=== PATIENT | male | born 1990 ===

== ENCOUNTER 2017-11-22 06:31 | Inpatient (IN) ==
[~2017-11-22 06:31] MED LIST: LACTATED RINGERS 1,000 ML IV SCH
[2017-11-22] MEDS ORDERED: INSULIN REGULAR 100 UNIT/ML IV ONE (07:27)
[2017-11-22] MEDS ORDERED: LIDOCAINE 1% 20 ML VIAL ONE (07:47)
[2017-11-22] MEDS ORDERED: fentaNYL 100 MCG/2 ML VIAL ONE (08:40)
[2017-11-22] MEDS ORDERED: ONDANSETRON 4 MG/2 ML VIAL ONE (08:40)
[2017-11-22] MEDS ORDERED: PROPOFOL 200 MG/20 ML VIAL IV ONE (08:40)
[2017-11-22] MEDS ORDERED: MIDAZOLAM 2 MG/2 ML VIAL ONE (08:40)
[2017-11-22] MEDS ORDERED: SODIUM CHLORIDE 0.9% 100 ML IV ONE (08:41)
[2017-11-22] MEDS ORDERED: MORPHINE 4 MG/1 ML VIAL IV PRN (09:32)
[2017-11-22] MEDS ORDERED: PROMETHAZINE 25 MG/1 ML VIAL IM PRN (09:32)
[2017-11-22] MEDS ORDERED: GLUCAGON 1 MG VIAL IM PRN (09:32)
[2017-11-22] MEDS ORDERED: DEXTROSE 50% 25 GM/50 ML VIAL IV PRN (09:32)
[2017-11-22] MEDS ORDERED: ONDANSETRON 4 MG/2 ML VIAL IV PRN (09:32)
[2017-11-22] MEDS: LACTATED RINGERS 1,000 ML IV SCH ×2 (11:04→17:32)
[2017-11-22] MEDS: PIPERACILLIN/TAZOBACTAM 3,375 MG in SODIUM CHLORIDE 0.9% 100 ML IV SCH ×2 (11:07→18:54)
[2017-11-22] MEDS: INSULIN REGULAR 100 UNIT/ML SUBCUT SCH ×3 (12:28→20:37)
[2017-11-22] MEDS: VANCOMYCIN INJ 1,250 MG in SODIUM CHLORIDE 0.9% 250 ML IV SCH ×2 (12:53→23:38)
[2017-11-22 13:02] LABS: Basophils % 0.2 % (0.0-0.8); Eosinophils % 0.3 % (0.00-10.9); Hematocrit 27.2 VOL% (42.0-52.0); Immature Granulocytes % 0.6 %; Immature Granulocytes Absolute 0.07 #; Lymphocytes # 1.5 10*3/uL (1.4-4.0); Lymphocytes % 13.7 % (21.2-54.2); Mean Corpuscular HGB Conc 33.1 GM/DL (32-36); Mean Corpuscular Hemoglobin 29 PG (27-34); Mean Corpuscular Volume 87.2 FL (87-102); Mean Platelet Volume 10.2 FL (9.6-12.0); Monocytes # 1.1 10*3/uL (0.11-0.8); Neutrophils # 8.3 10*3/uL (1.4-7.4); Neutrophils % 75.2 % (38.7-73.9); Platelet Count 269 T/CUMM (130-400); Red Blood Count 3.12 MC/CUMM (3.8-5.5); White Blood Count 11.1 T/CUMM (4-12)
[2017-11-22 13:43] LABS: Alanine Aminotransferase < 6 U/L (16-61); Albumin 2.4 G/DL (3.4-5.0); Alkaline Phosphatase 113 U/L (45-117); Aspartate Amino Transferase 3 U/L (0-37); Blood Urea Nitrogen 11 MG/DL (7-18); Calcium 7.8 MG/DL (8.5-10.1); Glucose 369 MG/DL (74-106); Osmolality,Calculated 292.4 MOS/KG (273-304); Potassium 3.6 MMOL/L (3.5-5.1); Sodium 140 MMOL/L (136-145); Total Protein 6.7 G/DL (6.4-8.3)
[2017-11-22] MEDS: metFORMIN 500 MG TABLET PO SCH (18:28)
[2017-11-22] MEDS ORDERED: INSULIN GLARGINE 100 UNIT/ML SUBCUT SCH (21:00)
[2017-11-23] MEDS: LACTATED RINGERS 1,000 ML IV SCH (02:02)
[2017-11-23] MEDS: PIPERACILLIN/TAZOBACTAM 3,375 MG in SODIUM CHLORIDE 0.9% 100 ML IV SCH ×2 (02:02→12:37)
[2017-11-23] MEDS ORDERED: ENOXAPARIN 40 MG/0.4 ML SYRINGE SUBCUT SCH (06:00)
[2017-11-23 06:19] LABS: Basophils % 0.2 % (0.0-0.8); Eosinophils # 0.1 10*3/uL (0.0-0.87); Hematocrit 26.6 VOL% (42.0-52.0); Hemoglobin 8.9 GM/DL (14.0-18.0); Immature Granulocytes % 0.5 %; Immature Granulocytes Absolute 0.06 #; Lymphocytes # 1.8 10*3/uL (1.4-4.0); Lymphocytes % 16.7 % (21.2-54.2); Mean Corpuscular HGB Conc 33.5 GM/DL (32-36); Mean Corpuscular Hemoglobin 29 PG (27-34); Mean Corpuscular Volume 87.8 FL (87-102); Mean Platelet Volume 10.4 FL (9.6-12.0); Monocytes # 1.2 10*3/uL (0.11-0.8); Monocytes % 11.1 % (1.7-12.7); Neutrophils # 7.7 10*3/uL (1.4-7.4); Neutrophils % 70.5 % (38.7-73.9); Platelet Count 252 T/CUMM (130-400); Red Blood Count 3.03 MC/CUMM (3.8-5.5); Red Cell Distribution Width 11.9 % (9.3-17.3)
[2017-11-23 06:30] LABS: Calcium 7.7 MG/DL (8.5-10.1); Osmolality,Calculated 283.4 MOS/KG (273-304)
[2017-11-23] MEDS ORDERED: GLIMEPIRIDE 4 MG TABLET PO SCH (08:00)
[2017-11-23] MEDS ORDERED: CYANOCOBALAMIN 500 MCG TABLET PO SCH (09:00)
[2017-11-23] MEDS: INSULIN REGULAR 100 UNIT/ML SUBCUT SCH ×2 (09:11→12:36)
[2017-11-23] MEDS: metFORMIN 500 MG TABLET PO SCH (09:11)
[2017-11-23] MEDS ORDERED: SODIUM HYPOCHLORITE 0.25% IRRIG 473 ML BOTTLE TOP SCH (09:30)
[2017-11-23 10:51] VITALS: BP 134/85
[2017-11-23] MEDS: VANCOMYCIN INJ 1,250 MG in SODIUM CHLORIDE 0.9% 250 ML IV SCH (12:37)
== END 2017-11-23 15:00 | disposition home or self-care (01) | DRG 264 ==
LOC: N.OR 06:31 → N.SDSINP 06:33 → N.3E 09:30
PROVIDERS: ADMIT Surgery; ATTEND Surgery

== ENCOUNTER 2017-12-21 09:05 | Inpatient (IN) ==
[2017-12-21] MEDS ORDERED: ONDANSETRON 4 MG/2 ML VIAL IV PRN (09:15)
[2017-12-21] MEDS ORDERED: ACETAMINOPHEN 325 MG TABLET PO PRN (09:15)
[2017-12-21 09:56] LABS: Basophils % 0.1 % (0.0-0.8); Eosinophils # 0.1 10*3/uL (0.0-0.87); Eosinophils % 0.8 % (0.00-10.9); Hemoglobin 9.7 GM/DL (14.0-18.0); Immature Granulocytes % 0.5 %; Immature Granulocytes Absolute 0.05 #; Lymphocytes # 1.5 10*3/uL (1.4-4.0); Lymphocytes % 15.1 % (21.2-54.2); Mean Corpuscular HGB Conc 33.4 GM/DL (32-36); Mean Corpuscular Hemoglobin 27 PG (27-34); Mean Corpuscular Volume 81.7 FL (87-102); Mean Platelet Volume 10.6 FL (9.6-12.0); Monocytes # 1.1 10*3/uL (0.11-0.8); Neutrophils # 7.3 10*3/uL (1.4-7.4); Neutrophils % 72.5 % (38.7-73.9); Platelet Count 404 T/CUMM (130-400); Red Blood Count 3.55 MC/CUMM (3.8-5.5)
[2017-12-21 10:33] LABS: Albumin 2.4 G/DL (3.4-5.0); Bilirubin,Total 0.5 MG/DL (0.2-1.0); Calcium 8.6 MG/DL (8.5-10.1); Potassium 3.5 MMOL/L (3.5-5.1); Total Protein 7.7 G/DL (6.4-8.3)
[2017-12-21] MEDS: INSULIN REGULAR 100 UNIT/ML SUBCUT SCH ×3 (10:35→21:28)
[2017-12-21] MEDS ORDERED: LIDOCAINE 1% 20 ML VIAL ONE (12:28)
[2017-12-21] MEDS ORDERED: fentaNYL 100 MCG/2 ML VIAL ONE (12:50)
[2017-12-21] MEDS ORDERED: MIDAZOLAM 2 MG/2 ML VIAL ONE (12:50)
[2017-12-21] MEDS ORDERED: SEVOFLURANE 1 UNIT/15 MINUTE INH ONE (12:50)
[2017-12-21] MEDS ORDERED: ONDANSETRON 4 MG/2 ML VIAL ONE (12:51)
[2017-12-21] MEDS ORDERED: PROPOFOL 200 MG/20 ML VIAL IV ONE (12:51)
[2017-12-21] MEDS: SODIUM CHLORIDE 0.45% 1,000 ML IV SCH (14:05)
[2017-12-21] MEDS: PIPERACILLIN/TAZOBACTAM 3,375 MG in SODIUM CHLORIDE 0.9% 100 ML IV SCH ×2 (14:31→23:19)
[2017-12-21] MEDS: metFORMIN 500 MG TABLET PO SCH (16:53)
[2017-12-21] MEDS: VANCOMYCIN INJ 1,000 MG in SODIUM CHLORIDE 0.9% 250 ML IV SCH (21:26)
[2017-12-21] MEDS: INSULIN GLARGINE 100 UNIT/ML SUBCUT SCH (21:29)
[2017-12-22] MEDS: SODIUM CHLORIDE 0.45% 1,000 ML IV SCH (05:12)
[2017-12-22] MEDS: VANCOMYCIN INJ 1,000 MG in SODIUM CHLORIDE 0.9% 250 ML IV SCH ×3 (05:13→20:26)
[2017-12-22] MEDS: PIPERACILLIN/TAZOBACTAM 3,375 MG in SODIUM CHLORIDE 0.9% 100 ML IV SCH ×3 (06:32→22:39)
[2017-12-22] MEDS: PANTOPRAZOLE 40 MG TABLET PO SCH (09:16)
[2017-12-22] MEDS: metFORMIN 500 MG TABLET PO SCH ×2 (09:16→17:00)
[2017-12-22] MEDS: INSULIN REGULAR 100 UNIT/ML SUBCUT SCH ×5 (09:17→20:26)
[2017-12-22] MEDS: GLIMEPIRIDE 4 MG TABLET PO SCH (09:17)
[2017-12-22] MEDS: SODIUM HYPOCHLORITE 0.25% IRRIG 473 ML BOTTLE TOP SCH (09:20)
[2017-12-22] MEDS: INSULIN GLARGINE 100 UNIT/ML SUBCUT SCH (20:27)
[2017-12-23] MEDS: VANCOMYCIN INJ 1,000 MG in SODIUM CHLORIDE 0.9% 250 ML IV SCH ×3 (04:21→20:51)
[2017-12-23] MEDS: PIPERACILLIN/TAZOBACTAM 3,375 MG in SODIUM CHLORIDE 0.9% 100 ML IV SCH ×3 (05:34→22:54)
[2017-12-23 07:18] LABS: Osmolality,Calculated 277.3 MOS/KG (273-304); Potassium 3.2 MMOL/L (3.5-5.1)
[2017-12-23] MEDS: INSULIN REGULAR 100 UNIT/ML SUBCUT SCH ×4 (07:32→20:31)
[2017-12-23] MEDS: metFORMIN 500 MG TABLET PO SCH ×2 (08:56→16:37)
[2017-12-23] MEDS: PANTOPRAZOLE 40 MG TABLET PO SCH (08:57)
[2017-12-23] MEDS: GLIMEPIRIDE 4 MG TABLET PO SCH (08:57)
[2017-12-23] MEDS: SODIUM HYPOCHLORITE 0.25% IRRIG 473 ML BOTTLE TOP SCH (14:21)
[2017-12-23] MEDS: INSULIN GLARGINE 100 UNIT/ML SUBCUT SCH (20:52)
[2017-12-24] MEDS: VANCOMYCIN INJ 1,000 MG in SODIUM CHLORIDE 0.9% 250 ML IV SCH ×3 (04:36→20:47)
[2017-12-24] MEDS: PIPERACILLIN/TAZOBACTAM 3,375 MG in SODIUM CHLORIDE 0.9% 100 ML IV SCH ×3 (06:31→22:24)
[2017-12-24] MEDS: INSULIN REGULAR 100 UNIT/ML SUBCUT SCH ×4 (08:50→20:48)
[2017-12-24] MEDS: PANTOPRAZOLE 40 MG TABLET PO SCH (08:51)
[2017-12-24] MEDS: metFORMIN 500 MG TABLET PO SCH ×2 (08:51→16:23)
[2017-12-24] MEDS: GLIMEPIRIDE 4 MG TABLET PO SCH (08:52)
[2017-12-24] MEDS: SODIUM HYPOCHLORITE 0.25% IRRIG 473 ML BOTTLE TOP SCH (08:53)
[2017-12-24] MEDS ORDERED: POTASSIUM CHLORIDE 20 MEQ TABLET PO PRN (14:11)
[2017-12-24] MEDS: INSULIN GLARGINE 100 UNIT/ML SUBCUT SCH (20:48)
[2017-12-25] MEDS: VANCOMYCIN INJ 1,000 MG in SODIUM CHLORIDE 0.9% 250 ML IV SCH (04:07)
[2017-12-25] MEDS: PIPERACILLIN/TAZOBACTAM 3,375 MG in SODIUM CHLORIDE 0.9% 100 ML IV SCH (06:05)
[2017-12-25] MEDS ORDERED: LEVOFLOXACIN 750 MG TABLET PO SCH (06:30)
[2017-12-25] MEDS: INSULIN REGULAR 100 UNIT/ML SUBCUT SCH ×2 (08:00→11:05)
[2017-12-25] MEDS: PANTOPRAZOLE 40 MG TABLET PO SCH (08:01)
[2017-12-25] MEDS: GLIMEPIRIDE 4 MG TABLET PO SCH (08:01)
[2017-12-25] MEDS: metFORMIN 500 MG TABLET PO SCH (08:01)
[2017-12-25] MEDS: SODIUM HYPOCHLORITE 0.25% IRRIG 473 ML BOTTLE TOP SCH (08:02)
[2017-12-25 12:54] VITALS: BP 115/70
== END 2017-12-25 13:48 | disposition home or self-care (01) | DRG 638 ==
LOC: N.5E 09:05 → INTOOBSV 09:05
PROVIDERS: ADMIT Surgery; ATTEND Surgery

== ENCOUNTER 2018-01-04 06:42 | Inpatient (IN) ==
[2018-01-04] MEDS ORDERED: GLUCAGON 1 MG VIAL IM PRN ×2 (07:52→15:12)
[2018-01-04] MEDS ORDERED: DEXTROSE 50% 25 GM/50 ML VIAL IV PRN ×2 (07:52→15:12)
[2018-01-04] MEDS: INSULIN REGULAR 100 UNIT/ML SUBCUT SCH ×4 (08:06→21:04)
[2018-01-04] MEDS ORDERED: FAMOTIDINE 20 MG TABLET PO ONE (08:16)
[2018-01-04] MEDS ORDERED: DIAZEPAM 5 MG TABLET PO ONE (08:16)
[2018-01-04] MEDS ORDERED: LACTATED RINGERS 1,000 ML IV SCH ×2 (08:30→15:12)
[2018-01-04] MEDS ORDERED: LIDOCAINE 1% 20 ML VIAL ONE (13:18)
[2018-01-04] MEDS ORDERED: DEXTROSE 5% 1,000 ML IV SCH (13:30)
[2018-01-04] MEDS ORDERED: PROPOFOL 200 MG/20 ML VIAL IV ONE (14:01)
[2018-01-04] MEDS ORDERED: fentaNYL 100 MCG/2 ML VIAL ONE (14:02)
[2018-01-04] MEDS ORDERED: ONDANSETRON 4 MG/2 ML VIAL ONE (14:02)
[2018-01-04] MEDS ORDERED: MIDAZOLAM 2 MG/2 ML VIAL ONE (14:02)
[2018-01-04] MEDS ORDERED: PROMETHAZINE 25 MG/1 ML VIAL IM PRN (15:12)
[2018-01-04] MEDS ORDERED: ONDANSETRON 4 MG/2 ML VIAL IV PRN (15:12)
[2018-01-04] MEDS: LEVOFLOXACIN 750 MG TABLET PO SCH (16:05)
[2018-01-04] MEDS: metFORMIN 500 MG TABLET PO SCH (17:32)
[2018-01-04] MEDS: INSULIN GLARGINE 100 UNIT/ML SUBCUT SCH (21:03)
[2018-01-05 05:16] LABS: Basophils % 0.4 % (0.0-0.8); Eosinophils # 0.1 10*3/uL (0.0-0.87); Eosinophils % 1.6 % (0.00-10.9); Hematocrit 28.9 VOL% (42.0-52.0); Hemoglobin 9.3 GM/DL (14.0-18.0); Immature Granulocytes % 0.3 %; Immature Granulocytes Absolute 0.02 #; Lymphocytes # 1.3 10*3/uL (1.4-4.0); Mean Corpuscular HGB Conc 32.2 GM/DL (32-36); Mean Corpuscular Hemoglobin 27 PG (27-34); Mean Corpuscular Volume 82.6 FL (87-102); Mean Platelet Volume 10.7 FL (9.6-12.0); Monocytes # 0.4 10*3/uL (0.11-0.8); Monocytes % 5.9 % (1.7-12.7); Neutrophils # 5.2 10*3/uL (1.4-7.4); Neutrophils % 73.8 % (38.7-73.9); Platelet Count 339 T/CUMM (130-400); Red Cell Distribution Width 13.1 % (9.3-17.3); White Blood Count 7.1 T/CUMM (4-12)
[2018-01-05 05:52] LABS: Calcium 8.6 MG/DL (8.5-10.1); Osmolality,Calculated 287.4 MOS/KG (273-304); Potassium 3.2 MMOL/L (3.5-5.1)
[2018-01-05] MEDS: GLIMEPIRIDE 2 MG TABLET PO SCH (08:22)
[2018-01-05] MEDS: metFORMIN 500 MG TABLET PO SCH ×2 (08:22→16:28)
[2018-01-05] MEDS: INSULIN REGULAR 100 UNIT/ML SUBCUT SCH ×4 (08:32→21:33)
[2018-01-05] MEDS: ENOXAPARIN 40 MG/0.4 ML SYRINGE SUBCUT SCH (08:33)
[2018-01-05] MEDS: POTASSIUM CHLORIDE 20 MEQ TABLET PO PRN ×4 (10:49→18:28)
[2018-01-05] MEDS: LEVOFLOXACIN 750 MG TABLET PO SCH (16:28)
[2018-01-05] MEDS: INSULIN GLARGINE 100 UNIT/ML SUBCUT SCH (21:33)
[2018-01-06] MEDS: INSULIN REGULAR 100 UNIT/ML SUBCUT SCH ×4 (08:00→21:07)
[2018-01-06] MEDS: metFORMIN 500 MG TABLET PO SCH ×2 (09:48→16:28)
[2018-01-06] MEDS: GLIMEPIRIDE 2 MG TABLET PO SCH (09:48)
[2018-01-06] MEDS: ENOXAPARIN 40 MG/0.4 ML SYRINGE SUBCUT SCH (09:49)
[2018-01-06] MEDS: LEVOFLOXACIN 750 MG TABLET PO SCH (16:28)
[2018-01-06] MEDS: INSULIN GLARGINE 100 UNIT/ML SUBCUT SCH (21:08)
[2018-01-07] MEDS: INSULIN REGULAR 100 UNIT/ML SUBCUT SCH ×4 (07:59→20:58)
[2018-01-07] MEDS: GLIMEPIRIDE 2 MG TABLET PO SCH (08:00)
[2018-01-07] MEDS: metFORMIN 500 MG TABLET PO SCH ×2 (08:00→17:16)
[2018-01-07] MEDS: ENOXAPARIN 40 MG/0.4 ML SYRINGE SUBCUT SCH (08:16)
[2018-01-07] MEDS ORDERED: LIDOCAINE 1% 20 ML VIAL ONE (08:55)
[2018-01-07] MEDS ORDERED: LACTATED RINGERS 1,000 ML IV SCH (09:30)
[2018-01-07] MEDS ORDERED: ONDANSETRON 4 MG/2 ML VIAL ONE (10:15)
[2018-01-07] MEDS ORDERED: PROPOFOL 200 MG/20 ML VIAL IV ONE (10:15)
[2018-01-07] MEDS ORDERED: fentaNYL 100 MCG/2 ML VIAL ONE (10:15)
[2018-01-07] MEDS ORDERED: MIDAZOLAM 2 MG/2 ML VIAL ONE (10:15)
[2018-01-07] MEDS: LEVOFLOXACIN 750 MG TABLET PO SCH (17:16)
[2018-01-07] MEDS: INSULIN GLARGINE 100 UNIT/ML SUBCUT SCH (20:56)
[2018-01-08 05:26] LABS: Basophils % 0.2 % (0.0-0.8); Eosinophils # 0.1 10*3/uL (0.0-0.87); Eosinophils % 1.4 % (0.00-10.9); Hematocrit 28.1 VOL% (42.0-52.0); Immature Granulocytes % 0.5 %; Immature Granulocytes Absolute 0.03 #; Lymphocytes # 1.9 10*3/uL (1.4-4.0); Lymphocytes % 28.6 % (21.2-54.2); Mean Corpuscular Hemoglobin 27 PG (27-34); Mean Corpuscular Volume 83.9 FL (87-102); Mean Platelet Volume 11.2 FL (9.6-12.0); Monocytes # 0.6 10*3/uL (0.11-0.8); Monocytes % 9.6 % (1.7-12.7); Neutrophils % 59.7 % (38.7-73.9); Platelet Count 258 T/CUMM (130-400); Red Blood Count 3.35 MC/CUMM (3.8-5.5); Red Cell Distribution Width 13.2 % (9.3-17.3); White Blood Count 6.6 T/CUMM (4-12)
[2018-01-08 05:46] LABS: Calcium 8.5 MG/DL (8.5-10.1); Osmolality,Calculated 281.3 MOS/KG (273-304); Potassium 3.5 MMOL/L (3.5-5.1)
[2018-01-08] MEDS: ENOXAPARIN 40 MG/0.4 ML SYRINGE SUBCUT SCH (09:42)
[2018-01-08] MEDS: metFORMIN 500 MG TABLET PO SCH (09:42)
[2018-01-08] MEDS: GLIMEPIRIDE 2 MG TABLET PO SCH (09:42)
[2018-01-08] MEDS: INSULIN REGULAR 100 UNIT/ML SUBCUT SCH ×2 (09:43→12:27)
[2018-01-08 11:58] VITALS: BP 142/81
== END 2018-01-08 13:55 | DRG 240 ==
LOC: N.OR 06:42 → N.SDSINP 06:45 → N.3E 15:02
PROVIDERS: ADMIT Surgery; ATTEND Surgery

== ENCOUNTER 2018-03-10 06:29 | Inpatient (IN) ==
[2018-03-10] MEDS ORDERED: ALBUTEROL 2.5 MG/3 ML NEB RESP TX PRN (08:48)
[2018-03-10] MEDS ORDERED: GLUCAGON 1 MG VIAL IM PRN (09:04)
[2018-03-10] MEDS ORDERED: DEXTROSE 50% 25 GM/50 ML VIAL IV PRN (09:04)
[2018-03-10] MEDS: LACTATED RINGERS 1,000 ML IV SCH ×2 (09:25→17:51)
[2018-03-10] MEDS: PANTOPRAZOLE 40 MG VIAL IV SCH (09:26)
[2018-03-10] MEDS: ONDANSETRON 4 MG/2 ML VIAL IV PRN (09:29)
[2018-03-10] MEDS: MORPHINE 4 MG/1 ML VIAL IV PRN ×3 (09:37→20:34)
[2018-03-10] MEDS: PIPERACILLIN/TAZOBACTAM 3,375 MG in SODIUM CHLORIDE 0.9% 100 ML IV SCH ×2 (09:38→17:45)
[2018-03-10 09:39] LABS: Basophils % 0.2 % (0.0-0.8); Hematocrit 31.2 VOL% (42.0-52.0); Hemoglobin 10.6 GM/DL (14.0-18.0); Immature Granulocytes % 0.3 %; Immature Granulocytes Absolute 0.04 #; Lymphocytes # 0.6 10*3/uL (1.4-4.0); Lymphocytes % 4.6 % (21.2-54.2); Mean Corpuscular Hemoglobin 28 PG (27-34); Mean Corpuscular Volume 81.3 FL (87-102); Monocytes # 0.8 10*3/uL (0.11-0.8); Monocytes % 6.3 % (1.7-12.7); Neutrophils # 11.5 10*3/uL (1.4-7.4); Neutrophils % 88.6 % (38.7-73.9); Platelet Count 164 T/CUMM (130-400); Red Blood Count 3.84 MC/CUMM (3.8-5.5); Red Cell Distribution Width 14.7 % (9.3-17.3); White Blood Count 12.9 T/CUMM (4-12)
[2018-03-10 09:48] LABS: INR 1.1; PT Patient Result 11.2 SECS
[2018-03-10 09:54] LABS: Lactic Acid 1.1 MMOL/L (0.4-2.0)
[2018-03-10 10:06] LABS: Albumin 3.1 G/DL (3.4-5.0); Bilirubin,Total 0.9 MG/DL (0.2-1.0); Calcium 8.4 MG/DL (8.5-10.1); Osmolality,Calculated 280.1 MOS/KG (273-304); Potassium 3.7 MMOL/L (3.5-5.1); Total Protein 6.9 G/DL (6.4-8.3)
[2018-03-10 10:08] LABS: Band Neutrophils 6 % (0-10); Hypochromasia 1+; Lymphocytes 5 % (20-55); Platelet Estimate Adequate; Segmented Neutrophils 79 % (50-85); Total Cells Counted 100
[2018-03-10] MEDS: metroNIDAZOLE INJ 500 MG in PREMIX 1 EACH IV SCH ×3 (11:18→21:28)
[2018-03-10] MEDS: INSULIN LISPRO 100 UNIT/ML SUBCUT SCH ×2 (11:21→18:47)
[2018-03-10] MEDS: VANCOMYCIN INJ 1,250 MG in SODIUM CHLORIDE 0.9% 250 ML IV SCH ×2 (13:47→20:35)
[2018-03-10 15:15] LABS: Apearance,Urine CLEAR (Clear); Bilirubin,Urine Negative (Negative); Blood, Urine Small mg/dL (Negative); Glucose,Urine (UA) Negative (Negative); Ketones,Urine Negative (Negative); Mucus,Urine Occasional /LPF (Occasional); Nitrite,Urine Negative (Negative); Protein,Urine 30 MG/DL; RBC,Urine 2 /HPF (0-4); Urine Color Yellow (Yellow); Urine Specific Gravity 1.019 (1.001-1.035); Urine Urobilinogen < 2.0 EU/DL (0.2-1.0); WBC,Urine 1 /HPF (0-6)
[2018-03-11] MEDS: INSULIN LISPRO 100 UNIT/ML SUBCUT SCH ×5 (00:30→23:36)
[2018-03-11] MEDS: PIPERACILLIN/TAZOBACTAM 3,375 MG in SODIUM CHLORIDE 0.9% 100 ML IV SCH (01:33)
[2018-03-11] MEDS: LACTATED RINGERS 1,000 ML IV SCH ×4 (02:00→21:31)
[2018-03-11] MEDS: metroNIDAZOLE INJ 500 MG in PREMIX 1 EACH IV SCH ×4 (04:11→21:16)
[2018-03-11] MEDS: MORPHINE 4 MG/1 ML VIAL IV PRN ×3 (04:11→23:37)
[2018-03-11] MEDS: VANCOMYCIN INJ 1,250 MG in SODIUM CHLORIDE 0.9% 250 ML IV SCH ×2 (04:59→14:13)
[2018-03-11 07:27] LABS: Basophils % 0.2 % (0.0-0.8); Hematocrit 30.6 VOL% (42.0-52.0); Hemoglobin 9.9 GM/DL (14.0-18.0); Immature Granulocytes % 0.8 %; Immature Granulocytes Absolute 0.11 #; Lymphocytes # 0.6 10*3/uL (1.4-4.0); Lymphocytes % 4.3 % (21.2-54.2); Mean Corpuscular HGB Conc 32.4 GM/DL (32-36); Mean Corpuscular Hemoglobin 27 PG (27-34); Mean Corpuscular Volume 83.4 FL (87-102); Mean Platelet Volume 11.8 FL (9.6-12.0); Monocytes # 0.7 10*3/uL (0.11-0.8); Monocytes % 4.7 % (1.7-12.7); Platelet Count 145 T/CUMM (130-400); Red Blood Count 3.67 MC/CUMM (3.8-5.5); Red Cell Distribution Width 14.9 % (9.3-17.3); White Blood Count 14.4 T/CUMM (4-12)
[2018-03-11 07:58] LABS: Calcium 7.9 MG/DL (8.5-10.1); Osmolality,Calculated 279.1 MOS/KG (273-304); Potassium 3.5 MMOL/L (3.5-5.1)
[2018-03-11 08:05] LABS: Band Neutrophils 9 % (0-10); Hypochromasia 1+; Lymphocytes 4 % (20-55); Microcytosis 1+; Segmented Neutrophils 84 % (50-85); Total Cells Counted 100
[2018-03-11] MEDS: PANTOPRAZOLE 40 MG VIAL IV SCH (08:44)
[2018-03-11] MEDS: ENOXAPARIN 40 MG/0.4 ML SYRINGE SUBCUT SCH (08:44)
[2018-03-11] MEDS: MEROPENEM 1,000 MG in SODIUM CHLORIDE 0.9% 100 ML IV SCH ×3 (08:44→23:36)
[2018-03-11] MEDS ORDERED: MAGNESIUM SULF RIDER 4 GM in PREMIX 1 EACH IV ONE (12:00)
[2018-03-11] MEDS: VANCOMYCIN INJ 1,000 MG in SODIUM CHLORIDE 0.9% 250 ML IV SCH ×2 (14:17→21:30)
[2018-03-11] MEDS ORDERED: VANCOMYCIN INJ 1,000 MG in SODIUM CHLORIDE 0.9% 250 ML IV SCH (14:30)
[2018-03-11] MEDS: INSULIN GLARGINE 100 UNIT/ML SUBCUT SCH (21:10)
[2018-03-11] MEDS: ONDANSETRON 4 MG/2 ML VIAL IV PRN (21:17)
[2018-03-12] MEDS: metroNIDAZOLE INJ 500 MG in PREMIX 1 EACH IV SCH ×4 (03:19→21:25)
[2018-03-12 03:26] LABS: Basophils % 0.1 % (0.0-0.8); Hematocrit 26.2 VOL% (42.0-52.0); Hemoglobin 8.4 GM/DL (14.0-18.0); Immature Granulocytes % 0.9 %; Immature Granulocytes Absolute 0.12 #; Lymphocytes # 0.6 10*3/uL (1.4-4.0); Lymphocytes % 4.2 % (21.2-54.2); Mean Corpuscular HGB Conc 32.1 GM/DL (32-36); Mean Corpuscular Hemoglobin 27 PG (27-34); Mean Corpuscular Volume 84.5 FL (87-102); Mean Platelet Volume 12.8 FL (9.6-12.0); Neutrophils # 12.2 10*3/uL (1.4-7.4); Neutrophils % 87.8 % (38.7-73.9); Platelet Count 119 T/CUMM (130-400); White Blood Count 13.8 T/CUMM (4-12)
[2018-03-12 03:38] LABS: Albumin 2.3 G/DL (3.4-5.0); Bilirubin,Total 0.6 MG/DL (0.2-1.0); Calcium 8.1 MG/DL (8.5-10.1); Osmolality,Calculated 279.1 MOS/KG (273-304); Total Protein 6.2 G/DL (6.4-8.3)
[2018-03-12 04:07] LABS: Band Neutrophils 5 % (0-10); Lymphocytes 4 % (20-55); Segmented Neutrophils 88 % (50-85)
[2018-03-12 04:08] LABS: Hypochromasia Slight
[2018-03-12 04:09] LABS: Platelet Estimate Adequate; Total Cells Counted 100
[2018-03-12] MEDS ORDERED: POTASSIUM CHLORIDE INJ 50 MEQ in SODIUM CHLORIDE 0.9% 475 ML IV SCH (05:30)
[2018-03-12] MEDS: MORPHINE 4 MG/1 ML VIAL IV PRN ×4 (05:37→23:44)
[2018-03-12] MEDS: VANCOMYCIN INJ 1,000 MG in SODIUM CHLORIDE 0.9% 250 ML IV SCH (05:38)
[2018-03-12] MEDS: INSULIN LISPRO 100 UNIT/ML SUBCUT SCH ×5 (05:47→21:24)
[2018-03-12] MEDS ORDERED: LACTATED RINGERS 1,000 ML IV ONE (07:15)
[2018-03-12] MEDS: POTASSIUM CHLORIDE 20 MEQ TABLET PO SCH ×4 (09:06→21:24)
[2018-03-12] MEDS: ENOXAPARIN 40 MG/0.4 ML SYRINGE SUBCUT SCH (09:06)
[2018-03-12] MEDS: PANTOPRAZOLE 40 MG VIAL IV SCH (09:07)
[2018-03-12] MEDS: MEROPENEM 1,000 MG in SODIUM CHLORIDE 0.9% 100 ML IV SCH ×2 (09:12→15:58)
[2018-03-12] MEDS: LACTATED RINGERS 1,000 ML IV SCH ×5 (09:37→23:43)
[2018-03-12] MEDS: ONDANSETRON 4 MG/2 ML VIAL IV PRN (21:25)
[2018-03-12] MEDS: INSULIN GLARGINE 100 UNIT/ML SUBCUT SCH (21:25)
[2018-03-13] MEDS: MEROPENEM 1,000 MG in SODIUM CHLORIDE 0.9% 100 ML IV SCH ×3 (00:53→16:15)
[2018-03-13] MEDS: metroNIDAZOLE INJ 500 MG in PREMIX 1 EACH IV SCH ×4 (03:33→22:30)
[2018-03-13] MEDS: LACTATED RINGERS 1,000 ML IV SCH ×5 (05:09→21:51)
[2018-03-13] MEDS: MORPHINE 4 MG/1 ML VIAL IV PRN ×2 (05:16→20:36)
[2018-03-13 05:43] LABS: Basophils % 0.1 % (0.0-0.8); Hematocrit 27.8 VOL% (42.0-52.0); Hemoglobin 9.1 GM/DL (14.0-18.0); Immature Granulocytes % 0.8 %; Immature Granulocytes Absolute 0.12 #; Lymphocytes # 0.6 10*3/uL (1.4-4.0); Lymphocytes % 3.8 % (21.2-54.2); Mean Corpuscular HGB Conc 32.7 GM/DL (32-36); Mean Corpuscular Hemoglobin 28 PG (27-34); Mean Corpuscular Volume 84.8 FL (87-102); Mean Platelet Volume 12.1 FL (9.6-12.0); Monocytes # 1.3 10*3/uL (0.11-0.8); Monocytes % 8.6 % (1.7-12.7); Neutrophils # 13.3 10*3/uL (1.4-7.4); Neutrophils % 86.7 % (38.7-73.9); Platelet Count 147 T/CUMM (130-400); Red Blood Count 3.28 MC/CUMM (3.8-5.5); Red Cell Distribution Width 15.5 % (9.3-17.3); White Blood Count 15.4 T/CUMM (4-12)
[2018-03-13 06:04] LABS: Eosinophils 1 % (0-10); Lymphocytes 5 % (20-55); Platelet Estimate Decreased; Segmented Neutrophils 89 % (50-85); Total Cells Counted 100
[2018-03-13 06:06] LABS: Calcium 8.1 MG/DL (8.5-10.1); Osmolality,Calculated 276.2 MOS/KG (273-304); Potassium 3.6 MMOL/L (3.5-5.1)
[2018-03-13] MEDS ORDERED: cefOXitin 2,000 MG in SYRINGE 1 EACH IV ONE (07:08)
[2018-03-13] MEDS ORDERED: VANCOMYCIN INJ 1,000 MG in SODIUM CHLORIDE 0.9% 250 ML IV SCH (08:00)
[2018-03-13] MEDS: INSULIN LISPRO 100 UNIT/ML SUBCUT SCH ×4 (08:23→20:36)
[2018-03-13] MEDS ORDERED: VANCOMYCIN 1,000 MG VIAL ONE (08:40)
[2018-03-13] MEDS ORDERED: PROPOFOL 1,000 MG/100 ML BOTTLE IV ONE (09:22)
[2018-03-13] MEDS: PANTOPRAZOLE 40 MG VIAL IV SCH (09:40)
[2018-03-13] MEDS: PROPOFOL 1,000 MG/100 ML BOTTLE IV SCH ×2 (09:40→21:52)
[2018-03-13] MEDS: ENOXAPARIN 40 MG/0.4 ML SYRINGE SUBCUT SCH (09:40)
[2018-03-13] MEDS ORDERED: PROPOFOL 200 MG/20 ML VIAL IV ONE (09:51)
[2018-03-13] MEDS ORDERED: fentaNYL 100 MCG/2 ML VIAL ONE (09:51)
[2018-03-13] MEDS ORDERED: ONDANSETRON 4 MG/2 ML VIAL ONE (09:51)
[2018-03-13] MEDS ORDERED: SEVOFLURANE 1 UNIT/15 MINUTE INH ONE (09:51)
[2018-03-13] MEDS ORDERED: MIDAZOLAM 2 MG/2 ML VIAL ONE (09:51)
[2018-03-13] MEDS ORDERED: ROCURONIUM 100 MG/10 ML VIAL IV ONE (09:52)
[2018-03-13] MEDS ORDERED: PHENYLEPHRINE 1 MG/10 ML SYRINGE IV ONE (09:52)
[2018-03-13] MEDS ORDERED: SUCCINYLCHOLINE 200 MG/10 ML VIAL ONE (09:52)
[2018-03-13] MEDS ORDERED: SODIUM CHLORIDE 0.9% 1,000 ML IV ONE (09:52)
[2018-03-13 09:54] LABS: Amorphous Crystals,Urine Occasional /HPF (Few); Apearance,Urine CLOUDY (Clear); Bacteria,Urine Moderate /HPF (Few); Bilirubin,Urine Negative (Negative); Blood, Urine Small mg/dL (Negative); Glucose,Urine (UA) 50 mg/dL (Negative); Ketones,Urine Negative (Negative); Mucus,Urine Few /LPF (Occasional); Nitrite,Urine Negative (Negative); Protein,Urine 30 MG/DL; RBC,Urine 8 /HPF (0-4); Urine Color Amber (Yellow); Urine Specific Gravity 1.016 (1.001-1.035); Urine Urobilinogen < 2.0 EU/DL (0.2-1.0)
[2018-03-13 09:59] LABS: Basophils % 0.1 % (0.0-0.8); Hematocrit 29.7 VOL% (42.0-52.0); Hemoglobin 9.7 GM/DL (14.0-18.0); Immature Granulocytes % 0.6 %; Immature Granulocytes Absolute 0.08 #; Lymphocytes % 7.2 % (21.2-54.2); Mean Corpuscular HGB Conc 32.7 GM/DL (32-36); Mean Corpuscular Hemoglobin 28 PG (27-34); Mean Corpuscular Volume 84.1 FL (87-102); Mean Platelet Volume 11.6 FL (9.6-12.0); Monocytes # 1.2 10*3/uL (0.11-0.8); Monocytes % 8.6 % (1.7-12.7); Neutrophils # 11.4 10*3/uL (1.4-7.4); Neutrophils % 83.5 % (38.7-73.9); Platelet Count 144 T/CUMM (130-400); Red Blood Count 3.53 MC/CUMM (3.8-5.5); Red Cell Distribution Width 15.5 % (9.3-17.3); White Blood Count 13.7 T/CUMM (4-12)
[2018-03-13 10:01] LABS: ABG Base Excess -8.3 MMOL/L (-2.5-2.5); ABG HCO3 17.8 MMOL/L (20-26); ABG Oxygen Saturation 99.7 % (95-100); ABG PCO2 33.1 MM HG (35-48); ABG PH 7.319 (7.35-7.45); ABG TCO2 15.6 MMOL/L (23-27)
[2018-03-13 10:18] LABS: Calcium 7.5 MG/DL (8.5-10.1); Osmolality,Calculated 279.2 MOS/KG (273-304); Potassium 3.5 MMOL/L (3.5-5.1)
[2018-03-13] MEDS: POTASSIUM CHLORIDE RIDER 10 MEQ in PREMIX 1 EACH IV PRN ×3 (12:25→14:45)
[2018-03-13 13:48] LABS: ABG Base Excess -7.2 MMOL/L (-2.5-2.5); ABG HCO3 17.1 MMOL/L (20-26); ABG Oxygen Saturation 98.9 % (95-100); ABG PCO2 30.6 MM HG (35-48); ABG PH 7.366 (7.35-7.45); ABG PO2 191.5 MM HG (80-95); ABG TCO2 18.1 MMOL/L (23-27); Pt O2 Delivery Device Ventilator
[2018-03-13] MEDS: INSULIN GLARGINE 100 UNIT/ML SUBCUT SCH (20:36)
[2018-03-14] MEDS: MEROPENEM 1,000 MG in SODIUM CHLORIDE 0.9% 100 ML IV SCH ×3 (00:19→16:46)
[2018-03-14] MEDS: LACTATED RINGERS 1,000 ML IV SCH ×4 (02:54→23:36)
[2018-03-14 03:14] LABS: ABG Base Excess -5.7 MMOL/L (-2.5-2.5); ABG HCO3 18.4 MMOL/L (20-26); ABG Oxygen Saturation 98.8 % (95-100); ABG PCO2 30.9 MM HG (35-48); ABG PH 7.392 (7.35-7.45); ABG PO2 192.6 MM HG (80-95); ABG TCO2 19.3 MMOL/L (23-27); Pt O2 Delivery Device Ventilator
[2018-03-14 03:14] LABS: Basophils % 0.2 % (0.0-0.8); Eosinophils % 0.1 % (0.00-10.9); Hematocrit 27.2 VOL% (42.0-52.0); Hemoglobin 8.8 GM/DL (14.0-18.0); Immature Granulocytes % 0.9 %; Immature Granulocytes Absolute 0.12 #; Lymphocytes % 7.5 % (21.2-54.2); Mean Corpuscular HGB Conc 32.4 GM/DL (32-36); Mean Corpuscular Hemoglobin 27 PG (27-34); Mean Corpuscular Volume 84.2 FL (87-102); Mean Platelet Volume 11.6 FL (9.6-12.0); Monocytes # 1.4 10*3/uL (0.11-0.8); Monocytes % 10.6 % (1.7-12.7); NRBC # 0.02 10*3/uL; Neutrophils # 10.3 10*3/uL (1.4-7.4); Neutrophils % 80.7 % (38.7-73.9); Platelet Count 178 T/CUMM (130-400); Red Blood Count 3.23 MC/CUMM (3.8-5.5); Red Cell Distribution Width 15.7 % (9.3-17.3); White Blood Count 12.8 T/CUMM (4-12)
[2018-03-14 03:29] LABS: Calcium 7.8 MG/DL (8.5-10.1); Osmolality,Calculated 282.8 MOS/KG (273-304); Potassium 3.6 MMOL/L (3.5-5.1)
[2018-03-14] MEDS: MORPHINE 4 MG/1 ML VIAL IV PRN (03:53)
[2018-03-14] MEDS: metroNIDAZOLE INJ 500 MG in PREMIX 1 EACH IV SCH ×2 (03:53→11:49)
[2018-03-14] MEDS: INSULIN LISPRO 100 UNIT/ML SUBCUT SCH ×4 (09:20→20:37)
[2018-03-14] MEDS: ENOXAPARIN 40 MG/0.4 ML SYRINGE SUBCUT SCH (09:22)
[2018-03-14] MEDS: PROPOFOL 1,000 MG/100 ML BOTTLE IV SCH (09:27)
[2018-03-14] MEDS ORDERED: VANCOMYCIN INJ 1,000 MG in SODIUM CHLORIDE 0.9% 250 ML IV ONE (10:00)
[2018-03-14] MEDS: PANTOPRAZOLE 40 MG VIAL IV SCH (12:42)
[2018-03-14] MEDS ORDERED: SEVOFLURANE 1 UNIT/15 MINUTE INH ONE (14:35)
[2018-03-14] MEDS ORDERED: fentaNYL 100 MCG/2 ML VIAL ONE (14:35)
[2018-03-14] MEDS ORDERED: MIDAZOLAM 2 MG/2 ML VIAL ONE (14:36)
[2018-03-14] MEDS ORDERED: ROCURONIUM 100 MG/10 ML VIAL IV ONE (14:36)
[2018-03-14] MEDS ORDERED: SODIUM CHLORIDE 0.9% 100 ML IV ONE (14:36)
[2018-03-14] MEDS ORDERED: PHENYLEPHRINE 10 MG/1 ML VIAL IV ONE (14:36)
[2018-03-14] MEDS ORDERED: PHENYLEPHRINE 1 MG/10 ML SYRINGE IV ONE (14:36)
[2018-03-14 15:16] LABS: Basophils % 0.1 % (0.0-0.8); Eosinophils # 0.1 10*3/uL (0.0-0.87); Eosinophils % 0.5 % (0.00-10.9); Hematocrit 28.4 VOL% (42.0-52.0); Hemoglobin 9.3 GM/DL (14.0-18.0); Immature Granulocytes % 1.7 %; Immature Granulocytes Absolute 0.19 #; Mean Corpuscular HGB Conc 32.7 GM/DL (32-36); Mean Corpuscular Hemoglobin 28 PG (27-34); Mean Corpuscular Volume 84.5 FL (87-102); Mean Platelet Volume 11.2 FL (9.6-12.0); Monocytes # 1.4 10*3/uL (0.11-0.8); Monocytes % 12.7 % (1.7-12.7); Neutrophils # 8.4 10*3/uL (1.4-7.4); Platelet Count 169 T/CUMM (130-400); Red Blood Count 3.36 MC/CUMM (3.8-5.5); Red Cell Distribution Width 15.9 % (9.3-17.3)
[2018-03-14 15:31] LABS: Calcium 7.7 MG/DL (8.5-10.1); Osmolality,Calculated 286.4 MOS/KG (273-304); Potassium 3.4 MMOL/L (3.5-5.1)
[2018-03-14 16:33] LABS: ABG HCO3 19.5 MMOL/L (20-26); ABG Oxygen Saturation 98.6 % (95-100); ABG PCO2 34.2 MM HG (35-48); ABG PH 7.374 (7.35-7.45); ABG PO2 177.9 MM HG (80-95); ABG TCO2 20.6 MMOL/L (23-27)
[2018-03-14] MEDS: INSULIN GLARGINE 100 UNIT/ML SUBCUT SCH (20:31)
[2018-03-14] MEDS: POTASSIUM CHLORIDE RIDER 10 MEQ in PREMIX 1 EACH IV PRN ×2 (20:31→21:34)
[2018-03-15] MEDS: MEROPENEM 1,000 MG in SODIUM CHLORIDE 0.9% 100 ML IV SCH ×3 (01:14→15:45)
[2018-03-15 03:36] LABS: ABG Base Excess -4.8 MMOL/L (-2.5-2.5); ABG HCO3 20.5 MMOL/L (20-26); ABG Oxygen Saturation 99.3 % (95-100); ABG PCO2 29.6 MM HG (35-48); ABG TCO2 16.9 MMOL/L (23-27)
[2018-03-15] MEDS: MORPHINE 4 MG/1 ML VIAL IV PRN (05:07)
[2018-03-15 05:49] LABS: Basophils % 0.2 % (0.0-0.8); Eosinophils # 0.1 10*3/uL (0.0-0.87); Eosinophils % 0.8 % (0.00-10.9); Hematocrit 29.1 VOL% (42.0-52.0); Hemoglobin 9.2 GM/DL (14.0-18.0); Immature Granulocytes % 1.6 %; Immature Granulocytes Absolute 0.19 #; Lymphocytes # 0.9 10*3/uL (1.4-4.0); Lymphocytes % 7.5 % (21.2-54.2); Mean Corpuscular HGB Conc 31.6 GM/DL (32-36); Mean Corpuscular Hemoglobin 27 PG (27-34); Mean Corpuscular Volume 84.8 FL (87-102); Mean Platelet Volume 10.7 FL (9.6-12.0); Monocytes # 1.5 10*3/uL (0.11-0.8); Monocytes % 13.1 % (1.7-12.7); Neutrophils % 76.8 % (38.7-73.9); Platelet Count 223 T/CUMM (130-400); Red Blood Count 3.43 MC/CUMM (3.8-5.5); Red Cell Distribution Width 15.9 % (9.3-17.3); White Blood Count 11.6 T/CUMM (4-12)
[2018-03-15 06:06] LABS: Calcium 7.3 MG/DL (8.5-10.1); Osmolality,Calculated 292.8 MOS/KG (273-304); Potassium 3.5 MMOL/L (3.5-5.1)
[2018-03-15] MEDS: PROPOFOL 1,000 MG/100 ML BOTTLE IV SCH ×2 (06:15→09:34)
[2018-03-15] MEDS: POTASSIUM CHLORIDE RIDER 10 MEQ in PREMIX 1 EACH IV PRN ×3 (06:53→08:44)
[2018-03-15] MEDS: LACTATED RINGERS 1,000 ML IV SCH ×2 (07:34→15:46)
[2018-03-15] MEDS: INSULIN LISPRO 100 UNIT/ML SUBCUT SCH ×4 (07:40→20:32)
[2018-03-15] MEDS: ENOXAPARIN 40 MG/0.4 ML SYRINGE SUBCUT SCH (09:29)
[2018-03-15] MEDS: PANTOPRAZOLE 40 MG VIAL IV SCH (09:30)
[2018-03-15 11:05] LABS: Protein C Activity Plasma 43 % (70 - 150)
[2018-03-15 12:09] LABS: Allen Test Positive; Pt O2 Delivery Device Ventilator
[2018-03-15 12:10] LABS: ABG Base Excess -5.2 MMOL/L (-2.5-2.5); ABG HCO3 19.2 MMOL/L (20-26); ABG Oxygen Saturation 98.2 % (95-100); ABG PCO2 33.1 MM HG (35-48); ABG PH 7.381 (7.35-7.45); ABG PO2 133.4 MM HG (80-95); ABG TCO2 20.2 MMOL/L (23-27)
[2018-03-15 13:51] LABS: ABG Base Excess -5.1 MMOL/L (-2.5-2.5); ABG HCO3 20.2 MMOL/L (20-26); ABG Oxygen Saturation 98.3 % (95-100); ABG PCO2 36.7 MM HG (35-48); ABG PH 7.345 (7.35-7.45); ABG TCO2 18.3 MMOL/L (23-27); Allen Test Positive
[2018-03-15 16:00] LABS: Protein S Activity Plasma 49 % (65 - 160)
[2018-03-15] MEDS: INSULIN GLARGINE 100 UNIT/ML SUBCUT SCH (20:32)
[2018-03-16] MEDS: MEROPENEM 1,000 MG in SODIUM CHLORIDE 0.9% 100 ML IV SCH ×3 (01:05→16:40)
[2018-03-16] MEDS: LACTATED RINGERS 1,000 ML IV SCH ×5 (08:25→23:30)
[2018-03-16] MEDS: PANTOPRAZOLE 40 MG VIAL IV SCH (08:45)
[2018-03-16] MEDS: ENOXAPARIN 40 MG/0.4 ML SYRINGE SUBCUT SCH (08:49)
[2018-03-16] MEDS: INSULIN LISPRO 100 UNIT/ML SUBCUT SCH ×4 (08:49→20:35)
[2018-03-16] MEDS: MORPHINE 4 MG/1 ML VIAL IV PRN (09:03)
[2018-03-16] MEDS: PROPOFOL 1,000 MG/100 ML BOTTLE IV SCH (09:42)
[2018-03-16] MEDS: INSULIN GLARGINE 100 UNIT/ML SUBCUT SCH (20:36)
[2018-03-17] MEDS: MEROPENEM 1,000 MG in SODIUM CHLORIDE 0.9% 100 ML IV SCH ×3 (00:32→16:55)
[2018-03-17] MEDS: MORPHINE 4 MG/1 ML VIAL IV PRN (04:04)
[2018-03-17 05:35] LABS: Basophils % 0.2 % (0.0-0.8); Eosinophils # 0.2 10*3/uL (0.0-0.87); Eosinophils % 1.9 % (0.00-10.9); Hematocrit 28.7 VOL% (42.0-52.0); Hemoglobin 9.1 GM/DL (14.0-18.0); Immature Granulocytes % 4.5 %; Immature Granulocytes Absolute 0.47 #; Lymphocytes # 1.3 10*3/uL (1.4-4.0); Lymphocytes % 12.2 % (21.2-54.2); Mean Corpuscular HGB Conc 31.7 GM/DL (32-36); Mean Corpuscular Hemoglobin 27 PG (27-34); Mean Corpuscular Volume 84.9 FL (87-102); Mean Platelet Volume 9.9 FL (9.6-12.0); Monocytes # 1.3 10*3/uL (0.11-0.8); Monocytes % 12.4 % (1.7-12.7); Neutrophils # 7.2 10*3/uL (1.4-7.4); Neutrophils % 68.8 % (38.7-73.9); Platelet Count 314 T/CUMM (130-400); Red Blood Count 3.38 MC/CUMM (3.8-5.5); Red Cell Distribution Width 15.3 % (9.3-17.3); White Blood Count 10.5 T/CUMM (4-12)
[2018-03-17 05:54] LABS: Calcium 7.2 MG/DL (8.5-10.1); Osmolality,Calculated 286.4 MOS/KG (273-304); Potassium 3.1 MMOL/L (3.5-5.1)
[2018-03-17] MEDS ORDERED: DEXTROSE 10% 1,000 ML IV PRN (08:46)
[2018-03-17] MEDS: LACTATED RINGERS 1,000 ML IV SCH ×3 (08:46→20:28)
[2018-03-17] MEDS: PANTOPRAZOLE 40 MG VIAL IV SCH (09:23)
[2018-03-17] MEDS: POTASSIUM CHLORIDE RIDER 10 MEQ in PREMIX 1 EACH IV PRN ×7 (09:25→18:55)
[2018-03-17] MEDS: ENOXAPARIN 40 MG/0.4 ML SYRINGE SUBCUT SCH (09:28)
[2018-03-17] MEDS: INSULIN LISPRO 100 UNIT/ML SUBCUT SCH ×3 (09:28→17:05)
[2018-03-17] MEDS: PROPOFOL 1,000 MG/100 ML BOTTLE IV SCH (09:34)
[2018-03-17] MEDS ORDERED: AMINO ACIDS/DEXT/LYTES 4.25-5% 2,000 ML IV ONE (17:00)
[2018-03-17] MEDS ORDERED: AMINO ACIDS/DEXT/LYTES 5-15% 2,000 ML IV SCH (17:00)
[2018-03-17] MEDS: ONDANSETRON 4 MG/2 ML VIAL IV PRN (23:45)
[2018-03-18] MEDS: INSULIN LISPRO 100 UNIT/ML SUBCUT SCH ×5 (00:18→23:29)
[2018-03-18] MEDS: INSULIN GLARGINE 100 UNIT/ML SUBCUT SCH ×2 (00:18→20:32)
[2018-03-18] MEDS ORDERED: MORPHINE 4 MG/1 ML VIAL IV PRN (01:00)
[2018-03-18] MEDS ORDERED: MORPHINE 4 MG/1 ML VIAL ONE (01:06)
[2018-03-18] MEDS: MEROPENEM 1,000 MG in SODIUM CHLORIDE 0.9% 100 ML IV SCH ×4 (01:13→23:44)
[2018-03-18 04:45] LABS: Basophils % 0.2 % (0.0-0.8); Eosinophils # 0.2 10*3/uL (0.0-0.87); Eosinophils % 1.7 % (0.00-10.9); Hematocrit 28.2 VOL% (42.0-52.0); Hemoglobin 8.9 GM/DL (14.0-18.0); Immature Granulocytes Absolute 0.39 #; Lymphocytes # 1.3 10*3/uL (1.4-4.0); Lymphocytes % 13.1 % (21.2-54.2); Mean Corpuscular HGB Conc 31.6 GM/DL (32-36); Mean Corpuscular Hemoglobin 27 PG (27-34); Mean Corpuscular Volume 84.4 FL (87-102); Mean Platelet Volume 9.7 FL (9.6-12.0); Monocytes % 10.3 % (1.7-12.7); Neutrophils # 6.9 10*3/uL (1.4-7.4); Neutrophils % 70.7 % (38.7-73.9); Platelet Count 332 T/CUMM (130-400); Red Blood Count 3.34 MC/CUMM (3.8-5.5); Red Cell Distribution Width 14.8 % (9.3-17.3); White Blood Count 9.8 T/CUMM (4-12)
[2018-03-18 05:10] LABS: Albumin 1.6 G/DL (3.4-5.0); Bilirubin,Total 0.6 MG/DL (0.2-1.0); Osmolality,Calculated 280.7 MOS/KG (273-304); Potassium 3.6 MMOL/L (3.5-5.1); Total Protein 5.3 G/DL (6.4-8.3)
[2018-03-18] MEDS: ENOXAPARIN 40 MG/0.4 ML SYRINGE SUBCUT SCH (08:35)
[2018-03-18] MEDS: PANTOPRAZOLE 40 MG VIAL IV SCH (08:38)
[2018-03-18 15:05] LABS: Phospholipid Ab IgM, S 15.2 MPL
[2018-03-18] MEDS ORDERED: AMINO ACIDS/DEXT/LYTES 4.25-5% 2,000 ML IV SCH (17:00)
[2018-03-19 04:55] LABS: Basophils % 0.2 % (0.0-0.8); Eosinophils # 0.2 10*3/uL (0.0-0.87); Eosinophils % 2.3 % (0.00-10.9); Hematocrit 28.1 VOL% (42.0-52.0); Hemoglobin 8.8 GM/DL (14.0-18.0); Immature Granulocytes % 2.6 %; Immature Granulocytes Absolute 0.25 #; Lymphocytes # 1.6 10*3/uL (1.4-4.0); Lymphocytes % 16.6 % (21.2-54.2); Mean Corpuscular HGB Conc 31.3 GM/DL (32-36); Mean Corpuscular Hemoglobin 26 PG (27-34); Mean Corpuscular Volume 84.1 FL (87-102); Mean Platelet Volume 9.4 FL (9.6-12.0); Monocytes % 10.1 % (1.7-12.7); Neutrophils # 6.5 10*3/uL (1.4-7.4); Neutrophils % 68.2 % (38.7-73.9); Platelet Count 366 T/CUMM (130-400); Red Blood Count 3.34 MC/CUMM (3.8-5.5); Red Cell Distribution Width 14.6 % (9.3-17.3); White Blood Count 9.5 T/CUMM (4-12)
[2018-03-19 05:30] LABS: Calcium 7.6 MG/DL (8.5-10.1); Osmolality,Calculated 278.5 MOS/KG (273-304); Potassium 3.2 MMOL/L (3.5-5.1)
[2018-03-19] MEDS: INSULIN LISPRO 100 UNIT/ML SUBCUT SCH ×3 (06:13→17:09)
[2018-03-19] MEDS: MEROPENEM 1,000 MG in SODIUM CHLORIDE 0.9% 100 ML IV SCH ×2 (08:25→16:12)
[2018-03-19] MEDS: ENOXAPARIN 40 MG/0.4 ML SYRINGE SUBCUT SCH (09:08)
[2018-03-19] MEDS: PANTOPRAZOLE 40 MG VIAL IV SCH (09:09)
[2018-03-19] MEDS ORDERED: POTASSIUM CHLORIDE 20 MEQ TABLET PO PRN (15:34)
[2018-03-19] MEDS: INSULIN GLARGINE 100 UNIT/ML SUBCUT SCH (21:39)
[2018-03-20] MEDS: MEROPENEM 1,000 MG in SODIUM CHLORIDE 0.9% 100 ML IV SCH ×3 (00:41→16:00)
[2018-03-20] MEDS: INSULIN LISPRO 100 UNIT/ML SUBCUT SCH ×4 (00:55→17:40)
[2018-03-20 05:44] LABS: Basophils % 0.2 % (0.0-0.8); Eosinophils # 0.2 10*3/uL (0.0-0.87); Eosinophils % 2.5 % (0.00-10.9); Hematocrit 28.1 VOL% (42.0-52.0); Hemoglobin 8.9 GM/DL (14.0-18.0); Immature Granulocytes % 3.2 %; Immature Granulocytes Absolute 0.29 #; Lymphocytes # 1.5 10*3/uL (1.4-4.0); Lymphocytes % 16.4 % (21.2-54.2); Mean Corpuscular HGB Conc 31.7 GM/DL (32-36); Mean Corpuscular Hemoglobin 27 PG (27-34); Mean Corpuscular Volume 85.2 FL (87-102); Mean Platelet Volume 9.8 FL (9.6-12.0); Monocytes # 0.9 10*3/uL (0.11-0.8); Monocytes % 9.8 % (1.7-12.7); Neutrophils # 6.1 10*3/uL (1.4-7.4); Neutrophils % 67.9 % (38.7-73.9); Platelet Count 401 T/CUMM (130-400); Red Cell Distribution Width 14.8 % (9.3-17.3); White Blood Count 9.1 T/CUMM (4-12)
[2018-03-20 06:29] LABS: Calcium 7.3 MG/DL (8.5-10.1); Osmolality,Calculated 285.1 MOS/KG (273-304); Potassium 3.3 MMOL/L (3.5-5.1)
[2018-03-20] MEDS: PANTOPRAZOLE 40 MG TABLET PO SCH (09:45)
[2018-03-20] MEDS: ENOXAPARIN 40 MG/0.4 ML SYRINGE SUBCUT SCH (09:45)
[2018-03-20] MEDS: INSULIN GLARGINE 100 UNIT/ML SUBCUT SCH (21:07)
[2018-03-21] MEDS: INSULIN LISPRO 100 UNIT/ML SUBCUT SCH ×4 (01:02→18:19)
[2018-03-21] MEDS: MEROPENEM 1,000 MG in SODIUM CHLORIDE 0.9% 100 ML IV SCH ×2 (01:05→13:08)
[2018-03-21 06:20] LABS: Calcium 7.7 MG/DL (8.5-10.1); Osmolality,Calculated 287.8 MOS/KG (273-304); Potassium 3.8 MMOL/L (3.5-5.1)
[2018-03-21] MEDS ORDERED: BUPIVACAINE MPF 0.25% /EPI 30 ML VIAL ONE (09:23)
[2018-03-21] MEDS ORDERED: LIDOCAINE 1% 20 ML VIAL ONE (09:24)
[2018-03-21] MEDS ORDERED: PROPOFOL 200 MG/20 ML VIAL IV ONE (10:21)
[2018-03-21] MEDS ORDERED: fentaNYL 100 MCG/2 ML VIAL ONE (10:21)
[2018-03-21] MEDS ORDERED: MIDAZOLAM 2 MG/2 ML VIAL ONE (10:21)
[2018-03-21] MEDS ORDERED: SEVOFLURANE 1 UNIT/15 MINUTE INH ONE (10:21)
[2018-03-21] MEDS ORDERED: PHENYLEPHRINE 1 MG/10 ML SYRINGE IV ONE (10:22)
[2018-03-21] MEDS: ENOXAPARIN 40 MG/0.4 ML SYRINGE SUBCUT SCH (11:22)
[2018-03-21] MEDS: PANTOPRAZOLE 40 MG TABLET PO SCH (13:07)
[2018-03-21] MEDS: AMOXICILLIN/CLAV 875 MG TABLET PO SCH (21:14)
[2018-03-21] MEDS: INSULIN GLARGINE 100 UNIT/ML SUBCUT SCH (21:19)
[2018-03-22] MEDS: INSULIN LISPRO 100 UNIT/ML SUBCUT SCH ×3 (00:27→13:42)
[2018-03-22 05:06] LABS: Calcium 7.2 MG/DL (8.5-10.1); Osmolality,Calculated 288.8 MOS/KG (273-304); Potassium 3.6 MMOL/L (3.5-5.1)
[2018-03-22 05:28] LABS: Basophils % 0.3 % (0.0-0.8); Eosinophils # 0.2 10*3/uL (0.0-0.87); Eosinophils % 2.4 % (0.00-10.9); Hematocrit 25.5 VOL% (42.0-52.0); Hemoglobin 7.8 GM/DL (14.0-18.0); Immature Granulocytes Absolute 0.08 #; Lymphocytes # 1.6 10*3/uL (1.4-4.0); Lymphocytes % 20.4 % (21.2-54.2); Mean Corpuscular HGB Conc 30.6 GM/DL (32-36); Mean Corpuscular Hemoglobin 27 PG (27-34); Mean Platelet Volume 9.5 FL (9.6-12.0); Monocytes # 0.7 10*3/uL (0.11-0.8); Monocytes % 9.4 % (1.7-12.7); Neutrophils # 5.3 10*3/uL (1.4-7.4); Neutrophils % 66.5 % (38.7-73.9); Platelet Count 394 T/CUMM (130-400); Red Blood Count 2.93 MC/CUMM (3.8-5.5); Red Cell Distribution Width 15.2 % (9.3-17.3); White Blood Count 7.9 T/CUMM (4-12)
[2018-03-22] MEDS: AMOXICILLIN/CLAV 875 MG TABLET PO SCH (09:05)
[2018-03-22] MEDS: PANTOPRAZOLE 40 MG TABLET PO SCH (09:05)
[2018-03-22] MEDS: ENOXAPARIN 40 MG/0.4 ML SYRINGE SUBCUT SCH (09:05)
[2018-03-22 21:21] VITALS: BP 138/88
== END 2018-03-22 16:40 | disposition home or self-care (01) | DRG 330 ==
LOC: SUATTDRO 08:14 → N.ICU 08:14 → N.3E 03-12 10:28 → N.CC 03-13 10:45 → N.3E 03-18 13:40
PROVIDERS: ADMIT Internal Medicine; ATTEND Hospitalist

== ENCOUNTER 2018-07-22 07:58 | Inpatient (IN) ==
[2018-07-22] MEDS ORDERED: GLUCAGON 1 MG VIAL IM PRN (10:51)
[2018-07-22] MEDS ORDERED: DEXTROSE 50% 25 GM/50 ML SYRINGE IV PRN (10:51)
[2018-07-22] MEDS: LACTATED RINGERS 1,000 ML IV SCH ×2 (11:20→19:46)
[2018-07-22 11:24] LABS: Basophils % 0.4 % (0.0-0.8); Eosinophils # 0.1 10*3/uL (0.0-0.87); Eosinophils % 2.7 % (0.00-10.9); Hematocrit 27.2 VOL% (42.0-52.0); Immature Granulocytes % 0.6 %; Immature Granulocytes Absolute 0.03 #; Lymphocytes # 1.2 10*3/uL (1.4-4.0); Lymphocytes % 22.9 % (21.2-54.2); Mean Corpuscular HGB Conc 33.1 GM/DL (32-36); Mean Corpuscular Hemoglobin 28 PG (27-34); Mean Corpuscular Volume 84.7 FL (87-102); Mean Platelet Volume 12.6 FL (9.6-12.0); Monocytes # 0.5 10*3/uL (0.11-0.8); Monocytes % 9.3 % (1.7-12.7); Neutrophils # 3.3 10*3/uL (1.4-7.4); Neutrophils % 64.1 % (38.7-73.9); Platelet Count 186 T/CUMM (130-400); Red Blood Count 3.21 MC/CUMM (3.8-5.5); Red Cell Distribution Width 13.5 % (9.3-17.3); White Blood Count 5.2 T/CUMM (4-12)
[2018-07-22] MEDS: INSULIN REGULAR 100 UNIT/ML SUBCUT SCH ×4 (11:36→20:42)
[2018-07-22 11:52] LABS: Osmolality,Calculated 289.4 MOS/KG (273-304)
[2018-07-22] MEDS ORDERED: DEXTROSE 50% 25 GM/50 ML VIAL IV PRN (15:46)
[2018-07-22] MEDS ORDERED: MICROFIBRILLAR COLLAGEN POWDER 1 GM CAN TOP ONE (16:20)
[2018-07-22] MEDS ORDERED: SODIUM CHLORIDE 0.9% 250 ML IV ONE (16:58)
[2018-07-22 17:04] LABS: Hematocrit 26.5 VOL% (42.0-52.0); Hemoglobin 8.8 GM/DL (14.0-18.0)
[2018-07-23] MEDS: LACTATED RINGERS 1,000 ML IV SCH (02:54)
[2018-07-23 05:23] LABS: Basophils % 0.4 % (0.0-0.8); Eosinophils # 0.2 10*3/uL (0.0-0.87); Eosinophils % 2.7 % (0.00-10.9); Hematocrit 26.5 VOL% (42.0-52.0); Hemoglobin 8.6 GM/DL (14.0-18.0); Immature Granulocytes % 0.5 %; Immature Granulocytes Absolute 0.03 #; Lymphocytes # 1.4 10*3/uL (1.4-4.0); Lymphocytes % 25.5 % (21.2-54.2); Mean Corpuscular HGB Conc 32.5 GM/DL (32-36); Mean Corpuscular Hemoglobin 28 PG (27-34); Mean Corpuscular Volume 86.3 FL (87-102); Mean Platelet Volume 12.6 FL (9.6-12.0); Monocytes # 0.5 10*3/uL (0.11-0.8); Monocytes % 9.5 % (1.7-12.7); Neutrophils # 3.4 10*3/uL (1.4-7.4); Neutrophils % 61.4 % (38.7-73.9); Platelet Count 191 T/CUMM (130-400); Red Blood Count 3.07 MC/CUMM (3.8-5.5); Red Cell Distribution Width 13.7 % (9.3-17.3); White Blood Count 5.5 T/CUMM (4-12)
[2018-07-23 05:41] LABS: Calcium 8.1 MG/DL (8.5-10.1); Osmolality,Calculated 293.7 MOS/KG (273-304)
[2018-07-23] MEDS ORDERED: ENOXAPARIN 40 MG/0.4 ML SYRINGE SUBCUT SCH (06:00)
[2018-07-23] MEDS: INSULIN REGULAR 100 UNIT/ML SUBCUT SCH ×4 (08:07→21:11)
[2018-07-23] MEDS ORDERED: INSULIN GLARGINE 100 UNIT/ML SUBCUT SCH ×2 (12:00→21:00)
[2018-07-23] MEDS: metFORMIN 500 MG TABLET PO SCH (16:51)
[2018-07-24 05:50] LABS: Basophils % 0.3 % (0.0-0.8); Eosinophils # 0.2 10*3/uL (0.0-0.87); Eosinophils % 3.2 % (0.00-10.9); Hematocrit 28.6 VOL% (42.0-52.0); Hemoglobin 9.2 GM/DL (14.0-18.0); Immature Granulocytes % 0.5 %; Immature Granulocytes Absolute 0.03 #; Lymphocytes # 1.4 10*3/uL (1.4-4.0); Lymphocytes % 21.8 % (21.2-54.2); Mean Corpuscular HGB Conc 32.2 GM/DL (32-36); Mean Corpuscular Hemoglobin 28 PG (27-34); Mean Corpuscular Volume 88.3 FL (87-102); Mean Platelet Volume 12.2 FL (9.6-12.0); Monocytes # 0.6 10*3/uL (0.11-0.8); Monocytes % 9.1 % (1.7-12.7); Neutrophils # 4.1 10*3/uL (1.4-7.4); Neutrophils % 65.1 % (38.7-73.9); Platelet Count 197 T/CUMM (130-400); Red Blood Count 3.24 MC/CUMM (3.8-5.5); Red Cell Distribution Width 13.8 % (9.3-17.3); White Blood Count 6.2 T/CUMM (4-12)
[2018-07-24 05:57] LABS: Calcium 8.2 MG/DL (8.5-10.1); Osmolality,Calculated 286.7 MOS/KG (273-304); Potassium 4.1 MMOL/L (3.5-5.1)
[2018-07-24] MEDS: SODIUM HYPOCHLORITE 0.25% IRRIG 473 ML BOTTLE TOP SCH ×2 (07:40→08:11)
[2018-07-24] MEDS: metFORMIN 500 MG TABLET PO SCH (08:12)
[2018-07-24] MEDS: INSULIN GLARGINE 100 UNIT/ML SUBCUT SCH (08:13)
[2018-07-24] MEDS: INSULIN REGULAR 100 UNIT/ML SUBCUT SCH ×4 (08:13→21:21)
[2018-07-25 04:59] LABS: Basophils % 0.2 % (0.0-0.8); Eosinophils # 0.2 10*3/uL (0.0-0.87); Eosinophils % 4.3 % (0.00-10.9); Hematocrit 29.8 VOL% (42.0-52.0); Hemoglobin 9.4 GM/DL (14.0-18.0); Immature Granulocytes % 0.5 %; Immature Granulocytes Absolute 0.03 #; Lymphocytes # 1.9 10*3/uL (1.4-4.0); Lymphocytes % 34.2 % (21.2-54.2); Mean Corpuscular HGB Conc 31.5 GM/DL (32-36); Mean Corpuscular Hemoglobin 28 PG (27-34); Mean Corpuscular Volume 89.8 FL (87-102); Mean Platelet Volume 12.1 FL (9.6-12.0); Monocytes # 0.6 10*3/uL (0.11-0.8); Monocytes % 10.3 % (1.7-12.7); Neutrophils # 2.8 10*3/uL (1.4-7.4); Neutrophils % 50.5 % (38.7-73.9); Platelet Count 209 T/CUMM (130-400); Red Blood Count 3.32 MC/CUMM (3.8-5.5); Red Cell Distribution Width 13.8 % (9.3-17.3); White Blood Count 5.6 T/CUMM (4-12)
[2018-07-25 05:23] LABS: Calcium 8.5 MG/DL (8.5-10.1); Osmolality,Calculated 287.7 MOS/KG (273-304); Potassium 4.3 MMOL/L (3.5-5.1)
[2018-07-25] MEDS: INSULIN REGULAR 100 UNIT/ML SUBCUT SCH ×4 (07:56→21:45)
[2018-07-25] MEDS: glyBURIDE 5 MG TABLET PO SCH ×2 (07:56→16:38)
[2018-07-25] MEDS: SODIUM HYPOCHLORITE 0.25% IRRIG 473 ML BOTTLE TOP SCH ×2 (08:00→23:07)
[2018-07-25] MEDS: INSULIN GLARGINE 100 UNIT/ML SUBCUT SCH (08:00)
[2018-07-25] MEDS ORDERED: SODIUM HYPOCHLORITE 0.25% IRR 1 APPLIC in IV BAG 1 EACH IRRIG PRN (12:10)
[2018-07-26] MEDS: glyBURIDE 5 MG TABLET PO SCH ×2 (09:31→16:04)
[2018-07-26] MEDS: INSULIN REGULAR 100 UNIT/ML SUBCUT SCH ×4 (09:32→21:40)
[2018-07-26] MEDS: SODIUM HYPOCHLORITE 0.25% IRRIG 473 ML BOTTLE TOP SCH (10:20)
[2018-07-26] MEDS ORDERED: INSULIN GLARGINE 100 UNIT/ML SUBCUT SCH (21:00)
[2018-07-26] MEDS: INSULIN GLARGINE 100 UNIT/ML SUBCUT SCH (21:40)
[2018-07-27 06:20] LABS: Calcium 8.3 MG/DL (8.5-10.1); Osmolality,Calculated 288.4 MOS/KG (273-304); Potassium 3.7 MMOL/L (3.5-5.1)
[2018-07-27] MEDS: glyBURIDE 5 MG TABLET PO SCH ×3 (08:55→17:07)
[2018-07-27] MEDS: SODIUM HYPOCHLORITE 0.25% IRRIG 473 ML BOTTLE TOP SCH ×2 (09:00→21:00)
[2018-07-27] MEDS: INSULIN REGULAR 100 UNIT/ML SUBCUT SCH ×4 (09:37→21:22)
[2018-07-27] MEDS: INSULIN GLARGINE 100 UNIT/ML SUBCUT SCH (21:21)
[2018-07-28] MEDS: INSULIN REGULAR 100 UNIT/ML SUBCUT SCH ×4 (07:30→21:16)
[2018-07-28] MEDS: SODIUM HYPOCHLORITE 0.25% IRRIG 473 ML BOTTLE TOP SCH (09:00)
[2018-07-28] MEDS: glyBURIDE 5 MG TABLET PO SCH ×2 (13:03→16:27)
[2018-07-28] MEDS: INSULIN GLARGINE 100 UNIT/ML SUBCUT SCH (21:16)
[2018-07-29] MEDS: SODIUM HYPOCHLORITE 0.25% IRRIG 473 ML BOTTLE TOP SCH ×3 (07:04→08:32)
[2018-07-29] MEDS: glyBURIDE 5 MG TABLET PO SCH (08:17)
[2018-07-29] MEDS: INSULIN REGULAR 100 UNIT/ML SUBCUT SCH ×2 (08:17→12:31)
[2018-07-29 11:59] VITALS: BP 100/64
== END 2018-07-29 12:50 | disposition home or self-care (01) | DRG 639 ==
LOC: SUATTDRO 10:32 → N.3E 10:32
PROVIDERS: ADMIT Surgery; ATTEND Surgery

== ENCOUNTER 2018-09-09 15:56 | Inpatient (IN) ==
[2018-09-09] MEDS ORDERED: SODIUM CHLORIDE 0.9% 1,000 ML IV STA (16:19)
[2018-09-09 16:36] LABS: Basophils % 0.1 % (0.0-0.8); Eosinophils % 0.2 % (0.00-10.9); Hematocrit 26.5 VOL% (42.0-52.0); Hemoglobin 8.6 GM/DL (14.0-18.0); Immature Granulocytes % 1.4 %; Immature Granulocytes Absolute 0.24 #; Lymphocytes # 1.2 10*3/uL (1.4-4.0); Lymphocytes % 7.2 % (21.2-54.2); Mean Corpuscular HGB Conc 32.5 GM/DL (32-36); Mean Corpuscular Volume 86.3 FL (87-102); Mean Platelet Volume 11.1 FL (9.6-12.0); Monocytes % 7.9 % (1.7-12.7); Neutrophils % 83.2 % (38.7-73.9); Platelet Count 289 T/CUMM (130-400); Red Blood Count 3.07 MC/CUMM (3.8-5.5); Red Cell Distribution Width 13.2 % (9.3-17.3); White Blood Count 16.9 T/CUMM (4-12)
[2018-09-09] MEDS ORDERED: ONDANSETRON 4 MG/2 ML VIAL IV PRN (16:39)
[2018-09-09] MEDS ORDERED: ACETAMINOPHEN 325 MG TABLET PO PRN (16:39)
[2018-09-09 16:58] LABS: Alanine Aminotransferase 12 U/L (16-61); Albumin 2.8 G/DL (3.4-5.0); Alkaline Phosphatase 149 U/L (45-117); Aspartate Amino Transferase 7 U/L (0-37); Bilirubin,Total < 0.39 MG/DL (0.2-1.0); Blood Urea Nitrogen 24 MG/DL (7-18); Calcium 8.1 MG/DL (8.5-10.1); Glucose 286 MG/DL (74-106); Osmolality,Calculated 277.5 MOS/KG (273-304); Total Protein 7.4 G/DL (6.4-8.3)
[2018-09-09] MEDS ORDERED: CLINDAMYCIN INJ 600 MG in PREMIX 1 EACH IV STA (17:32)
[2018-09-09] MEDS: CIPROFLOXACIN INJ 400 MG in PREMIX 1 EACH IV SCH (17:39)
[2018-09-09 17:49] LABS: Apearance,Urine CLEAR (Clear); Bilirubin,Urine Negative (Negative); Blood, Urine Small mg/dL (Negative); Glucose,Urine (UA) >=500 mg/dL (Negative); Hyaline Casts,Urine 1 /LPF (0-3); Ketones,Urine 5 mg/dL (Negative); Mucus,Urine Occasional /LPF (Occasional); Nitrite,Urine Negative (Negative); Protein,Urine 30 MG/DL; RBC,Urine 3 /HPF (0-4); Squamous Epithelial Cell,Urine Occasional /HPF (0-10); Urine Color Yellow (Yellow); Urine Specific Gravity 1.015 (1.001-1.035); Urine Urobilinogen < 2.0 EU/DL (0.2-1.0); WBC,Urine 4 /HPF (0-6)
[2018-09-10] MEDS: CIPROFLOXACIN INJ 400 MG in PREMIX 1 EACH IV SCH ×2 (04:58→16:47)
[2018-09-10] MEDS: INSULIN REGULAR 100 UNIT/ML SUBCUT SCH ×2 (06:36→11:56)
[2018-09-10] MEDS ORDERED: LIDOCAINE 1%/EPI INJ 20 ML VIAL ONE (06:58)
[2018-09-10] MEDS: LACTATED RINGERS 1,000 ML IV SCH (07:29)
[2018-09-10] MEDS ORDERED: INSULIN REGULAR 100 UNIT/ML IV ONE (08:07)
[2018-09-10] MEDS ORDERED: INSULIN REGULAR 100 UNIT/ML ONE (08:08)
[2018-09-10] MEDS ORDERED: SEVOFLURANE 1 UNIT/15 MINUTE INH ONE (08:09)
[2018-09-10] MEDS ORDERED: MIDAZOLAM 2 MG/2 ML VIAL ONE (08:09)
[2018-09-10] MEDS ORDERED: PROPOFOL 200 MG/20 ML VIAL IV ONE (08:09)
[2018-09-10] MEDS ORDERED: ONDANSETRON 4 MG/2 ML VIAL ONE (08:10)
[2018-09-10] MEDS ORDERED: KETOROLAC 30 MG/1 ML VIAL ONE (08:10)
[2018-09-10] MEDS ORDERED: DEXAMETHASONE 4 MG/1 ML VIAL ONE (08:10)
[2018-09-10] MEDS ORDERED: SODIUM CHLORIDE 0.9% 1,000 ML IV ONE (08:10)
[2018-09-10] MEDS ORDERED: PHENYLEPHRINE 1 MG/10 ML SYRINGE IV ONE (08:10)
[2018-09-10] MEDS ORDERED: fentaNYL 100 MCG/2 ML VIAL ONE (08:10)
[2018-09-10] MEDS: PANTOPRAZOLE 40 MG TABLET PO SCH (10:03)
[2018-09-10] MEDS: MORPHINE 4 MG/1 ML VIAL IV PRN ×2 (11:58→20:58)
[2018-09-10] MEDS ORDERED: DEXTROSE 50% 25 GM/50 ML SYRINGE IV PRN (13:20)
[2018-09-10] MEDS ORDERED: GLUCAGON 1 MG VIAL IM PRN (13:20)
[2018-09-10] MEDS: INSULIN LISPRO 100 UNIT/ML SUBCUT SCH ×2 (16:47→20:47)
[2018-09-10] MEDS ORDERED: INSULIN GLARGINE 100 UNIT/ML SUBCUT SCH (21:00)
[2018-09-11] MEDS: CIPROFLOXACIN INJ 400 MG in PREMIX 1 EACH IV SCH ×2 (04:31→17:28)
[2018-09-11 04:39] LABS: Basophils % 0.2 % (0.0-0.8); Eosinophils # 0.1 10*3/uL (0.0-0.87); Eosinophils % 1.3 % (0.00-10.9); Hematocrit 25.4 VOL% (42.0-52.0); Immature Granulocytes Absolute 0.21 #; Mean Corpuscular HGB Conc 31.5 GM/DL (32-36); Mean Corpuscular Volume 88.5 FL (87-102); Mean Platelet Volume 11.3 FL (9.6-12.0); Monocytes % 9.6 % (1.7-12.7); Neutrophils % 67.9 % (38.7-73.9); Platelet Count 301 T/CUMM (130-400); Red Blood Count 2.87 MC/CUMM (3.8-5.5); Red Cell Distribution Width 13.2 % (9.3-17.3); White Blood Count 10.4 T/CUMM (4-12)
[2018-09-11 05:02] LABS: Calcium 7.4 MG/DL (8.5-10.1); Osmolality,Calculated 289.7 MOS/KG (273-304)
[2018-09-11] MEDS: INSULIN LISPRO 100 UNIT/ML SUBCUT SCH ×4 (08:37→20:57)
[2018-09-11] MEDS: PANTOPRAZOLE 40 MG TABLET PO SCH (08:37)
[2018-09-11] MEDS: SODIUM HYPOCHLORITE 0.25% IRRIG 473 ML BOTTLE TOP SCH (11:10)
[2018-09-11] MEDS ORDERED: INSULIN GLARGINE 100 UNIT/ML SUBCUT SCH ×2 (13:19→21:00)
[2018-09-11] MEDS: LACTATED RINGERS 1,000 ML IV SCH (20:56)
[2018-09-12] MEDS: CIPROFLOXACIN INJ 400 MG in PREMIX 1 EACH IV SCH ×2 (04:31→17:25)
[2018-09-12 05:44] LABS: Basophils % 0.5 % (0.0-0.8); Eosinophils # 0.2 10*3/uL (0.0-0.87); Eosinophils % 2.6 % (0.00-10.9); Hematocrit 27.3 VOL% (42.0-52.0); Hemoglobin 8.6 GM/DL (14.0-18.0); Immature Granulocytes % 3.3 %; Immature Granulocytes Absolute 0.22 #; Lymphocytes # 1.5 10*3/uL (1.4-4.0); Lymphocytes % 22.9 % (21.2-54.2); Mean Corpuscular HGB Conc 31.5 GM/DL (32-36); Mean Corpuscular Volume 88.6 FL (87-102); Mean Platelet Volume 10.6 FL (9.6-12.0); Monocytes % 9.8 % (1.7-12.7); Neutrophils % 60.9 % (38.7-73.9); Platelet Count 310 T/CUMM (130-400); Red Blood Count 3.08 MC/CUMM (3.8-5.5); Red Cell Distribution Width 13.4 % (9.3-17.3); White Blood Count 6.6 T/CUMM (4-12)
[2018-09-12 05:59] LABS: Calcium 8.1 MG/DL (8.5-10.1); Osmolality,Calculated 288.8 MOS/KG (273-304)
[2018-09-12] MEDS: INSULIN LISPRO 100 UNIT/ML SUBCUT SCH ×4 (08:34→20:47)
[2018-09-12] MEDS: PANTOPRAZOLE 40 MG TABLET PO SCH (08:36)
[2018-09-12] MEDS ORDERED: GLUCAGON 1 MG VIAL IM PRN (14:21)
[2018-09-12] MEDS ORDERED: DEXTROSE 50% 25 GM/50 ML SYRINGE IV PRN (14:21)
[2018-09-12] MEDS: SODIUM HYPOCHLORITE 0.25% IRRIG 473 ML BOTTLE TOP SCH (16:55)
[2018-09-12] MEDS: LACTATED RINGERS 1,000 ML IV SCH (20:19)
[2018-09-12] MEDS: INSULIN GLARGINE 100 UNIT/ML SUBCUT SCH (20:48)
[2018-09-13] MEDS: CIPROFLOXACIN INJ 400 MG in PREMIX 1 EACH IV SCH (05:18)
[2018-09-13] MEDS: INSULIN LISPRO 100 UNIT/ML SUBCUT SCH ×4 (07:49→21:03)
[2018-09-13] MEDS: PANTOPRAZOLE 40 MG TABLET PO SCH (08:22)
[2018-09-13] MEDS: AMPICILLIN INJ 1,000 MG in SODIUM CHLORIDE 0.9% 100 ML IV SCH ×3 (08:49→20:57)
[2018-09-13] MEDS: SODIUM HYPOCHLORITE 0.25% IRRIG 473 ML BOTTLE TOP SCH (10:08)
[2018-09-13] MEDS: INSULIN GLARGINE 100 UNIT/ML SUBCUT SCH (21:03)
[2018-09-13] MEDS: LACTATED RINGERS 1,000 ML IV SCH (22:56)
[2018-09-14] MEDS: AMPICILLIN INJ 1,000 MG in SODIUM CHLORIDE 0.9% 100 ML IV SCH ×4 (03:07→20:01)
[2018-09-14 06:15] LABS: Calcium 8.2 MG/DL (8.5-10.1); Osmolality,Calculated 288.7 MOS/KG (273-304)
[2018-09-14] MEDS: INSULIN LISPRO 100 UNIT/ML SUBCUT SCH ×4 (08:39→20:04)
[2018-09-14] MEDS: PANTOPRAZOLE 40 MG TABLET PO SCH (08:42)
[2018-09-14] MEDS: SODIUM HYPOCHLORITE 0.25% IRRIG 473 ML BOTTLE TOP SCH (09:29)
[2018-09-14] MEDS: INSULIN GLARGINE 100 UNIT/ML SUBCUT SCH (20:04)
[2018-09-14] MEDS: LACTATED RINGERS 1,000 ML IV SCH (22:30)
[2018-09-15] MEDS: AMPICILLIN INJ 1,000 MG in SODIUM CHLORIDE 0.9% 100 ML IV SCH ×4 (02:58→20:04)
[2018-09-15] MEDS: INSULIN LISPRO 100 UNIT/ML SUBCUT SCH ×4 (09:23→20:05)
[2018-09-15] MEDS: PANTOPRAZOLE 40 MG TABLET PO SCH (09:26)
[2018-09-15] MEDS: SODIUM HYPOCHLORITE 0.25% IRRIG 473 ML BOTTLE TOP SCH (09:26)
[2018-09-15] MEDS: LACTATED RINGERS 1,000 ML IV SCH (19:56)
[2018-09-15] MEDS: INSULIN GLARGINE 100 UNIT/ML SUBCUT SCH (21:31)
[2018-09-16] MEDS: AMPICILLIN INJ 1,000 MG in SODIUM CHLORIDE 0.9% 100 ML IV SCH ×2 (02:33→09:27)
[2018-09-16] MEDS: LACTATED RINGERS 1,000 ML IV SCH (07:05)
[2018-09-16] MEDS: PANTOPRAZOLE 40 MG TABLET PO SCH (09:26)
[2018-09-16] MEDS: INSULIN LISPRO 100 UNIT/ML SUBCUT SCH ×2 (09:26→13:01)
[2018-09-16] MEDS: SODIUM HYPOCHLORITE 0.25% IRRIG 473 ML BOTTLE TOP SCH (10:27)
[2018-09-16 11:44] VITALS: BP 114/68
== END 2018-09-16 15:30 | disposition home or self-care (01) | DRG 988 ==
LOC: EDUNIT# → EDBD → N.ED 15:56 → N.EDINP 16:25 → N.3E 17:52
PROVIDERS: ADMIT Surgery; ATTEND Surgery

== ENCOUNTER 2018-09-27 07:58 | Observation (INO) ==
[~2018-09-27 07:58] MED LIST changes: -LACTATED RINGERS 1,000 ML IV SCH; +ceFAZolin 1,000 MG in SYRINGE 1 EACH IV ONE
[2018-09-27 08:21] LABS: Basophils % 0.5 % (0.0-0.8); Eosinophils # 0.1 10*3/uL (0.0-0.87); Eosinophils % 1.8 % (0.00-10.9); Hematocrit 30.1 VOL% (42.0-52.0); Hemoglobin 8.7 GM/DL (14.0-18.0); Immature Granulocytes % 0.5 %; Immature Granulocytes Absolute 0.03 #; Lymphocytes # 1.4 10*3/uL (1.4-4.0); Lymphocytes % 22.7 % (21.2-54.2); Mean Corpuscular HGB Conc 28.9 GM/DL (32-36); Mean Corpuscular Volume 95.9 FL (87-102); Mean Platelet Volume 12.2 FL (9.6-12.0); Monocytes % 5.9 % (1.7-12.7); Neutrophils % 68.6 % (38.7-73.9); Platelet Count 218 T/CUMM (130-400); Red Blood Count 3.14 MC/CUMM (3.8-5.5); Red Cell Distribution Width 14.9 % (9.3-17.3)
[2018-09-27 08:51] LABS: Calcium 8.4 MG/DL (8.5-10.1); Osmolality,Calculated 283.4 MOS/KG (273-304)
[2018-09-27 08:59] LABS: Hypochromasia 1+; Microcytosis Slight; Platelet Estimate Normal
[2018-09-27] MEDS ORDERED: ONDANSETRON 4 MG/2 ML VIAL IV PRN (09:53)
[2018-09-27] MEDS ORDERED: ACETAMINOPHEN 325 MG TABLET PO PRN (09:53)
[2018-09-27] MEDS ORDERED: MORPHINE 4 MG/1 ML VIAL IV PRN (09:53)
[2018-09-27] MEDS ORDERED: BISACODYL 5 MG TABLET PO PRN (09:59)
[2018-09-27] MEDS ORDERED: DEXTROSE 50% 25 GM/50 ML VIAL IV PRN ×2 (10:02)
[2018-09-27] MEDS ORDERED: GLUCAGON 1 MG VIAL IM PRN ×2 (10:02)
[2018-09-27] MEDS: INSULIN LISPRO 100 UNIT/ML SUBCUT SCH ×3 (11:27→20:40)
[2018-09-27] MEDS ORDERED: DEXTROSE 50% 25 GM/50 ML SYRINGE IV PRN ×2 (11:30)
[2018-09-27] MEDS: CLINDAMYCIN INJ 600 MG in PREMIX 1 EACH IV SCH ×2 (12:03→20:02)
[2018-09-27] MEDS: SODIUM POLYSTYRENE SULFATE 15 GM/60 ML BOTTLE PO SCH ×3 (12:03→22:41)
[2018-09-27] MEDS ORDERED: SODIUM POLYSTYRENE SULFATE 15 GM/60 ML BOTTLE PO ONE ×2 (12:21→15:00)
[2018-09-27] MEDS ORDERED: CALCIUM GLUCONATE 1,000 MG in SODIUM CHLORIDE 0.9% 100 ML IV ONE (12:24)
[2018-09-27] MEDS: SODIUM BICARB INJ 50 MEQ in SODIUM CHLORIDE 0.45% 1,000 ML IV SCH (15:26)
[2018-09-27] MEDS: glyBURIDE 5 MG TABLET PO SCH (17:51)
[2018-09-27] MEDS: SIMVASTATIN 20 MG TABLET PO SCH (20:02)
[2018-09-28] MEDS: SODIUM BICARB INJ 50 MEQ in SODIUM CHLORIDE 0.45% 1,000 ML IV SCH ×2 (01:32→11:46)
[2018-09-28] MEDS: CLINDAMYCIN INJ 600 MG in PREMIX 1 EACH IV SCH ×3 (04:34→20:39)
[2018-09-28] MEDS: ENOXAPARIN 40 MG/0.4 ML SYRINGE SUBCUT SCH (04:36)
[2018-09-28 06:50] LABS: Basophils % 0.6 % (0.0-0.8); Eosinophils # 0.1 10*3/uL (0.0-0.87); Eosinophils % 1.9 % (0.00-10.9); Hematocrit 24.7 VOL% (42.0-52.0); Hemoglobin 7.4 GM/DL (14.0-18.0); Immature Granulocytes % 0.2 %; Immature Granulocytes Absolute 0.01 #; Lymphocytes # 1.6 10*3/uL (1.4-4.0); Lymphocytes % 33.4 % (21.2-54.2); Mean Corpuscular Volume 93.6 FL (87-102); Mean Platelet Volume 12.2 FL (9.6-12.0); Monocytes % 7.9 % (1.7-12.7); Platelet Count 202 T/CUMM (130-400); Red Blood Count 2.64 MC/CUMM (3.8-5.5); Red Cell Distribution Width 14.8 % (9.3-17.3); White Blood Count 4.8 T/CUMM (4-12)
[2018-09-28] MEDS: SODIUM POLYSTYRENE SULFATE 15 GM/60 ML BOTTLE PO SCH ×2 (06:53→11:46)
[2018-09-28 07:08] LABS: Calcium 8.1 MG/DL (8.5-10.1); Osmolality,Calculated 292.7 MOS/KG (273-304)
[2018-09-28] MEDS: INSULIN LISPRO 100 UNIT/ML SUBCUT SCH ×4 (08:19→20:42)
[2018-09-28] MEDS: PANTOPRAZOLE 40 MG TABLET PO SCH (09:03)
[2018-09-28] MEDS: FOLIC ACID 1 MG TABLET PO SCH (09:03)
[2018-09-28] MEDS: ASPIRIN EC 81 MG TABLET PO SCH (09:03)
[2018-09-28] MEDS: THIAMINE 100 MG TABLET PO SCH (09:03)
[2018-09-28] MEDS: glyBURIDE 5 MG TABLET PO SCH (17:33)
[2018-09-28] MEDS: SIMVASTATIN 20 MG TABLET PO SCH (20:39)
[2018-09-29] MEDS: ENOXAPARIN 40 MG/0.4 ML SYRINGE SUBCUT SCH (04:51)
[2018-09-29] MEDS: CLINDAMYCIN INJ 600 MG in PREMIX 1 EACH IV SCH ×3 (04:53→20:40)
[2018-09-29] MEDS: INSULIN LISPRO 100 UNIT/ML SUBCUT SCH ×4 (07:00→20:40)
[2018-09-29] MEDS ORDERED: ceFAZolin 1,000 MG in SYRINGE 1 EACH IV ONE (07:00)
[2018-09-29] MEDS ORDERED: diphenhydrAMINE 50 MG/1 ML VIAL IV PRN (07:06)
[2018-09-29] MEDS ORDERED: ONDANSETRON 4 MG/2 ML VIAL IV PRN (07:06)
[2018-09-29] MEDS ORDERED: PROMETHAZINE INJ 25 MG in SODIUM CHLORIDE 0.9% 50 ML IV PRN (07:06)
[2018-09-29] MEDS ORDERED: HYDROmorphone 2 MG/1 ML VIAL IV PRN (07:06)
[2018-09-29] MEDS ORDERED: MEPERIDINE 25 MG/1 ML VIAL IV PRN (07:06)
[2018-09-29] MEDS ORDERED: LIDOCAINE 1%/EPI INJ 20 ML VIAL ONE (07:37)
[2018-09-29] MEDS ORDERED: fentaNYL 100 MCG/2 ML VIAL ONE (08:36)
[2018-09-29] MEDS ORDERED: MIDAZOLAM 2 MG/2 ML VIAL ONE (08:36)
[2018-09-29] MEDS ORDERED: PROPOFOL 200 MG/20 ML VIAL IV ONE (08:36)
[2018-09-29] MEDS: FOLIC ACID 1 MG TABLET PO SCH (09:37)
[2018-09-29] MEDS: ASPIRIN EC 81 MG TABLET PO SCH (09:37)
[2018-09-29] MEDS: PANTOPRAZOLE 40 MG TABLET PO SCH (09:38)
[2018-09-29] MEDS: THIAMINE 100 MG TABLET PO SCH (09:38)
[2018-09-29] MEDS: glyBURIDE 5 MG TABLET PO SCH (17:10)
[2018-09-29] MEDS: SIMVASTATIN 20 MG TABLET PO SCH (20:40)
[2018-09-30] MEDS: ENOXAPARIN 40 MG/0.4 ML SYRINGE SUBCUT SCH (04:48)
[2018-09-30] MEDS: CLINDAMYCIN INJ 600 MG in PREMIX 1 EACH IV SCH (04:49)
[2018-09-30 05:16] LABS: Basophils % 0.2 % (0.0-0.8); Eosinophils # 0.3 10*3/uL (0.0-0.87); Eosinophils % 5.3 % (0.00-10.9); Hematocrit 23.7 VOL% (42.0-52.0); Hemoglobin 7.3 GM/DL (14.0-18.0); Immature Granulocytes % 0.2 %; Immature Granulocytes Absolute 0.01 #; Lymphocytes # 1.8 10*3/uL (1.4-4.0); Lymphocytes % 35.6 % (21.2-54.2); Mean Corpuscular HGB Conc 30.8 GM/DL (32-36); Mean Corpuscular Volume 92.6 FL (87-102); Mean Platelet Volume 12.4 FL (9.6-12.0); Monocytes % 10.5 % (1.7-12.7); Neutrophils % 48.2 % (38.7-73.9); Platelet Count 159 T/CUMM (130-400); Red Blood Count 2.56 MC/CUMM (3.8-5.5); Red Cell Distribution Width 14.6 % (9.3-17.3); White Blood Count 4.9 T/CUMM (4-12)
[2018-09-30 05:44] LABS: Calcium 6.8 MG/DL (8.5-10.1)
[2018-09-30] MEDS: INSULIN LISPRO 100 UNIT/ML SUBCUT SCH (08:02)
[2018-09-30] MEDS: PANTOPRAZOLE 40 MG TABLET PO SCH (09:16)
[2018-09-30] MEDS: ASPIRIN EC 81 MG TABLET PO SCH (09:16)
[2018-09-30] MEDS: FOLIC ACID 1 MG TABLET PO SCH (09:16)
[2018-09-30] MEDS: THIAMINE 100 MG TABLET PO SCH (09:16)
[2018-09-30 11:17] VITALS: BP 112/67
== END 2018-09-30 11:35 | disposition home or self-care (01) ==
LOC: N.OR 07:58 → N.SDSINP 07:58 → N.3E 07:58 → N.SDSINP 07:59 → N.3E 10:53 → UNDODISOB 09-30 11:35
PROVIDERS: ADMIT Surgery; ATTEND Surgery

== ENCOUNTER 2019-02-10 17:40 | Inpatient (IN) ==
[2019-02-10] MEDS ORDERED: INFLUENZA VIRUS VACCINE 0.5 ML SYRINGE IM ONE (20:14)
[2019-02-10 20:48] LABS: Albumin 3.2 G/DL (3.4-5.0); Bilirubin,Total 0.6 MG/DL (0.2-1.0); Calcium 7.9 MG/DL (8.5-10.1); Osmolality,Calculated 291.8 MOS/KG (273-304); Total Protein 6.9 G/DL (6.4-8.3)
[2019-02-10] MEDS ORDERED: ALBUTEROL 2.5 MG/3 ML NEB RESP TX PRN (20:54)
[2019-02-10] MEDS ORDERED: ONDANSETRON 4 MG/2 ML VIAL IV PRN (21:13)
[2019-02-10] MEDS ORDERED: GLUCAGON 1 MG VIAL IM PRN (21:24)
[2019-02-10] MEDS ORDERED: DEXTROSE 50% 25 GM/50 ML VIAL IV PRN (21:24)
[2019-02-10] MEDS ORDERED: PANTOPRAZOLE 40 MG VIAL IV SCH (21:30)
[2019-02-10] MEDS: SODIUM CHLORIDE 0.9% 1,000 ML IV SCH (21:43)
[2019-02-10] MEDS: INSULIN REGULAR 100 UNIT/ML SUBCUT SCH (21:55)
[2019-02-10] MEDS: ENOXAPARIN 40 MG/0.4 ML SYRINGE SUBCUT SCH (21:55)
[2019-02-11 00:57] LABS: Apearance,Urine CLEAR (Clear); Bilirubin,Urine Negative (Negative); Blood, Urine Small mg/dL (Negative); Glucose,Urine (UA) >=500 mg/dL (Negative); Hyaline Casts,Urine 1 /LPF (0-3); Ketones,Urine Negative (Negative); Nitrite,Urine Negative (Negative); Protein,Urine Negative; RBC,Urine 1 /HPF (0-4); Squamous Epithelial Cell,Urine Occasional /HPF (0-10); Urine Color Straw (Yellow); Urine Specific Gravity 1.014 (1.001-1.035); Urine Urobilinogen < 2.0 EU/DL (0.2-1.0); WBC,Urine 11 /HPF (0-6)
[2019-02-11 01:23] LABS: Protein/Creatinine Ratio,Urine 0.7 RATIO
[2019-02-11] MEDS: SODIUM CHLORIDE 0.9% 1,000 ML IV SCH ×3 (05:43→14:26)
[2019-02-11 07:29] LABS: Albumin 2.8 G/DL (3.4-5.0); Bilirubin,Total 1.2 MG/DL (0.2-1.0); Osmolality,Calculated 292.7 MOS/KG (273-304); Total Protein 6.3 G/DL (6.4-8.3)
[2019-02-11] MEDS ORDERED: DEXTROSE 50% 25 GM/50 ML VIAL IV PRN (07:47)
[2019-02-11] MEDS ORDERED: GLUCAGON 1 MG VIAL IM PRN (07:47)
[2019-02-11] MEDS ORDERED: INSULIN LISPRO 100 UNIT/ML SUBCUT SCH (08:00)
[2019-02-11] MEDS: INSULIN REGULAR 100 UNIT/ML SUBCUT SCH (08:19)
[2019-02-11] MEDS: PANTOPRAZOLE 40 MG TABLET PO SCH (08:20)
[2019-02-11] MEDS: FERROUS SULFATE 325 MG TABLET PO SCH ×2 (08:20→16:18)
[2019-02-11] MEDS: MULTIVITAMIN (CENTRUM) TABLET PO SCH (08:20)
[2019-02-11] MEDS ORDERED: DEXTROSE 10% 250 ML BAG IV PRN ×2 (10:00)
[2019-02-11] MEDS: INSULIN GLARGINE 100 UNIT/ML SUBCUT SCH (10:20)
[2019-02-11] MEDS: INSULIN LISPRO 100 UNIT/ML SUBCUT SCH ×5 (12:54→20:34)
[2019-02-11] MEDS: ENOXAPARIN 40 MG/0.4 ML SYRINGE SUBCUT SCH (20:34)
[2019-02-12] MEDS: SODIUM CHLORIDE 0.9% 1,000 ML IV SCH (02:43)
[2019-02-12 05:13] LABS: Calcium 7.6 MG/DL (8.5-10.1)
[2019-02-12 07:58] VITALS: BP 107/59
[2019-02-12] MEDS: MULTIVITAMIN (CENTRUM) TABLET PO SCH (09:40)
[2019-02-12] MEDS: INSULIN LISPRO 100 UNIT/ML SUBCUT SCH ×2 (09:41)
[2019-02-12] MEDS: FERROUS SULFATE 325 MG TABLET PO SCH (09:41)
[2019-02-12] MEDS: INSULIN GLARGINE 100 UNIT/ML SUBCUT SCH (09:41)
[2019-02-12] MEDS: PANTOPRAZOLE 40 MG TABLET PO SCH (09:42)
== END 2019-02-12 11:58 | disposition home or self-care (01) | DRG 638 ==
LOC: N.ICU 19:51 → SUATTDRO 19:51 → N.2E 02-11 11:18
PROVIDERS: ADMIT Internal Medicine; ATTEND Emergency Medicine

== ENCOUNTER 2019-08-28 15:23 | Inpatient (IN) ==
[2019-08-28] MEDS ORDERED: INSULIN REGULAR 100 UNIT/ML IV ONE (17:07)
[2019-08-28] MEDS ORDERED: DEXTROSE 50% 25 GM/50 ML VIAL IV PRN ×2 (17:07→17:48)
[2019-08-28] MEDS ORDERED: MAGNESIUM SULF RIDER 2 GM in PREMIX 1 EACH IV PRN (17:07)
[2019-08-28] MEDS ORDERED: MAGNESIUM SULF RIDER 4 GM in PREMIX 1 EACH IV PRN (17:07)
[2019-08-28] MEDS ORDERED: SODIUM CHLORIDE 0.9% 1,000 ML IV ONE (17:07)
[2019-08-28] MEDS ORDERED: SODIUM PHOSPHATE INJ 30 MMOL in SODIUM CHLORIDE 0.9% 250 ML IV PRN (17:07)
[2019-08-28] MEDS ORDERED: DEXTROSE 10% 250 ML BAG IV PRN (17:07)
[2019-08-28] MEDS ORDERED: SODIUM BICARB INJ 100 MEQ in STERILE WATER INJ 400 ML IV PRN (17:07)
[2019-08-28] MEDS ORDERED: INSULIN REGULAR DRIP 100 ML IV SCH (17:30)
[2019-08-28] MEDS ORDERED: CLINDAMYCIN INJ 600 MG in PREMIX 1 EACH IV SCH (17:30)
[2019-08-28] MEDS ORDERED: cefTRIAXone 2,000 MG in SYRINGE 1 EACH IV SCH (17:30)
[2019-08-28 17:48] LABS: ABG Base Excess -14.6 MMOL/L (-2.5-2.5); ABG HCO3 13.1 MMOL/L (20-26); ABG Oxygen Saturation 98.7 % (95-100); ABG PCO2 26.2 MM HG (35-48); ABG PH 7.251 (7.35-7.45); ABG TCO2 10.8 MMOL/L (23-27)
[2019-08-28] MEDS ORDERED: GLUCAGON 1 MG VIAL IM PRN (17:48)
[2019-08-28 17:52] LABS: Basophils # 0.1 10*3/uL (0.0-0.2); Basophils % 0.3 % (0.0-0.8); Eosinophils # 0.1 10*3/uL (0.0-0.87); Eosinophils % 0.4 % (0.00-10.9); Hematocrit 26.7 VOL% (42.0-52.0); Hemoglobin 8.6 GM/DL (14.0-18.0); Immature Granulocytes % 2.1 %; Immature Granulocytes Absolute 0.46 #; Lymphocytes # 1.4 10*3/uL (1.4-4.0); Lymphocytes % 6.4 % (21.2-54.2); Mean Corpuscular HGB Conc 32.2 GM/DL (32-36); Mean Corpuscular Volume 90.8 FL (87-102); Mean Platelet Volume 10.8 FL (9.6-12.0); Monocytes % 7.9 % (1.7-12.7); Neutrophils % 82.9 % (38.7-73.9); Platelet Count 338 T/CUMM (130-400); Red Blood Count 2.94 MC/CUMM (3.8-5.5); Red Cell Distribution Width 12.1 % (9.3-17.3); White Blood Count 21.4 T/CUMM (4-12)
[2019-08-28 18:21] LABS: Calcium 8.1 MG/DL (8.5-10.1); Osmolality,Calculated 282.5 MOS/KG (273-304)
[2019-08-28] MEDS: SODIUM CHLORIDE 0.9% 1,000 ML IV SCH ×2 (18:22→20:53)
[2019-08-28] MEDS ORDERED: SODIUM BICARBONATE 50 MEQ/50 ML VIAL IV ONE ×2 (18:28→18:31)
[2019-08-28] MEDS ORDERED: PNEUMOCOCCAL VACCINE (23 VALENT) 0.5 ML VIAL IM ONE (19:00)
[2019-08-28 19:07] LABS: Band Neutrophils 7 % (0-10); Lymphocytes 6 % (20-55); Metamyelocytes 1 %; Segmented Neutrophils 82 % (50-85); Total Cells Counted 100
[2019-08-28 19:08] LABS: Platelet Estimate Adequate
[2019-08-28 21:12] LABS: Calcium 7.7 MG/DL (8.5-10.1); Osmolality,Calculated 284.8 MOS/KG (273-304)
[2019-08-28] MEDS ORDERED: SODIUM CHLORIDE 0.9% 1,000 ML IV SCH (22:08)
[2019-08-29 01:27] LABS: Basophils % 0.2 % (0.0-0.8); Eosinophils # 0.2 10*3/uL (0.0-0.87); Eosinophils % 1.1 % (0.00-10.9); Hematocrit 25.7 VOL% (42.0-52.0); Hemoglobin 8.6 GM/DL (14.0-18.0); Immature Granulocytes % 1.7 %; Immature Granulocytes Absolute 0.31 #; Lymphocytes # 1.3 10*3/uL (1.4-4.0); Mean Corpuscular HGB Conc 33.5 GM/DL (32-36); Mean Platelet Volume 10.4 FL (9.6-12.0); Monocytes % 7.1 % (1.7-12.7); Neutrophils % 82.9 % (38.7-73.9); Platelet Count 340 T/CUMM (130-400); Red Blood Count 2.92 MC/CUMM (3.8-5.5); Red Cell Distribution Width 11.9 % (9.3-17.3); White Blood Count 18.4 T/CUMM (4-12)
[2019-08-29 01:49] LABS: Calcium 7.8 MG/DL (8.5-10.1); Osmolality,Calculated 278.5 MOS/KG (273-304)
[2019-08-29] MEDS: PENICILLIN G POTASSIUM INJ 4,000,000 UNIT in SODIUM CHLORIDE 0.9% 100 ML IV SCH ×6 (02:40→23:18)
[2019-08-29] MEDS: CLINDAMYCIN INJ 900 MG in PREMIX 1 EACH IV SCH ×4 (02:40→21:25)
[2019-08-29 05:36] LABS: Calcium 7.4 MG/DL (8.5-10.1); Osmolality,Calculated 279.2 MOS/KG (273-304)
[2019-08-29] MEDS: POTASSIUM CHLORIDE RIDER 10 MEQ in PREMIX 1 EACH IV PRN ×4 (06:42→12:05)
[2019-08-29] MEDS ORDERED: LIDOCAINE 2% 5 ML VIAL ONE (08:05)
[2019-08-29] MEDS ORDERED: propofoL 200 MG/20 ML VIAL IV ONE (08:05)
[2019-08-29] MEDS ORDERED: SEVOFLURANE 1 UNIT/15 MINUTE INH ONE (08:05)
[2019-08-29] MEDS ORDERED: PHENYLEPHRINE 1 MG/10 ML SYRINGE IV ONE (08:06)
[2019-08-29] MEDS ORDERED: SODIUM CHLORIDE 0.45% 1,000 ML IV SCH (10:08)
[2019-08-29 10:54] LABS: Calcium 7.2 MG/DL (8.5-10.1); Osmolality,Calculated 279.1 MOS/KG (273-304)
[2019-08-29] MEDS ORDERED: DEXTROSE 10% 250 ML BAG IV PRN (11:36)
[2019-08-29] MEDS ORDERED: GLUCAGON 1 MG VIAL IM PRN (11:36)
[2019-08-29] MEDS ORDERED: SODIUM CHLORIDE 0.9% 1,000 ML IV SCH (12:00)
[2019-08-29] MEDS: INSULIN GLARGINE 100 UNIT/ML SUBCUT SCH ×2 (12:10→21:22)
[2019-08-29] MEDS: LEVOFLOXACIN INJ 750 MG in PREMIX 1 EACH IV SCH (12:10)
[2019-08-29] MEDS: INSULIN REGULAR 100 UNIT/ML SUBCUT SCH ×2 (15:45→21:23)
[2019-08-29] MEDS: INSULIN LISPRO 100 UNIT/ML SUBCUT SCH ×2 (16:36→21:25)
[2019-08-29] MEDS: SODIUM CHLORIDE 0.9% 1,000 ML IV SCH (17:37)
[2019-08-30] MEDS: SODIUM CHLORIDE 0.9% 1,000 ML IV SCH ×2 (00:33→13:53)
[2019-08-30] MEDS: PENICILLIN G POTASSIUM INJ 4,000,000 UNIT in SODIUM CHLORIDE 0.9% 100 ML IV SCH ×6 (03:58→22:40)
[2019-08-30 04:51] LABS: Basophils % 0.3 % (0.0-0.8); Eosinophils # 0.1 10*3/uL (0.0-0.87); Eosinophils % 0.8 % (0.00-10.9); Hematocrit 23.5 VOL% (42.0-52.0); Hemoglobin 7.7 GM/DL (14.0-18.0); Immature Granulocytes % 2.8 %; Lymphocytes # 1.2 10*3/uL (1.4-4.0); Lymphocytes % 8.6 % (21.2-54.2); Mean Corpuscular HGB Conc 32.8 GM/DL (32-36); Mean Corpuscular Volume 89.4 FL (87-102); Mean Platelet Volume 10.7 FL (9.6-12.0); Monocytes % 7.4 % (1.7-12.7); Neutrophils % 80.1 % (38.7-73.9); Platelet Count 307 T/CUMM (130-400); Red Blood Count 2.63 MC/CUMM (3.8-5.5); Red Cell Distribution Width 12.3 % (9.3-17.3); White Blood Count 14.1 T/CUMM (4-12)
[2019-08-30] MEDS: CLINDAMYCIN INJ 900 MG in PREMIX 1 EACH IV SCH ×3 (05:27→21:57)
[2019-08-30 05:47] LABS: Calcium 7.6 MG/DL (8.5-10.1); VLDL CHOLESTEROL 21.8 MG/DL
[2019-08-30] MEDS: INSULIN REGULAR 100 UNIT/ML SUBCUT SCH ×4 (08:45→22:45)
[2019-08-30] MEDS: INSULIN LISPRO 100 UNIT/ML SUBCUT SCH ×4 (08:45→22:45)
[2019-08-30] MEDS: INSULIN GLARGINE 100 UNIT/ML SUBCUT SCH ×2 (08:46→22:44)
[2019-08-30] MEDS: LEVOFLOXACIN INJ 750 MG in PREMIX 1 EACH IV SCH (12:07)
[2019-08-30] MEDS ORDERED: SODIUM CHLORIDE 0.9% 1,000 ML IV PRN (15:09)
[2019-08-31] MEDS: SODIUM CHLORIDE 0.9% 1,000 ML IV SCH (04:10)
[2019-08-31] MEDS: PENICILLIN G POTASSIUM INJ 4,000,000 UNIT in SODIUM CHLORIDE 0.9% 100 ML IV SCH ×5 (04:48→20:59)
[2019-08-31 05:24] LABS: Basophils % 0.4 % (0.0-0.8); Eosinophils # 0.2 10*3/uL (0.0-0.87); Eosinophils % 1.6 % (0.00-10.9); Hematocrit 28.6 VOL% (42.0-52.0); Hemoglobin 9.3 GM/DL (14.0-18.0); Immature Granulocytes % 3.8 %; Immature Granulocytes Absolute 0.39 #; Lymphocytes # 1.5 10*3/uL (1.4-4.0); Lymphocytes % 14.8 % (21.2-54.2); Mean Corpuscular HGB Conc 32.5 GM/DL (32-36); Mean Corpuscular Volume 89.7 FL (87-102); Mean Platelet Volume 10.5 FL (9.6-12.0); Monocytes % 9.2 % (1.7-12.7); Neutrophils % 70.2 % (38.7-73.9); Platelet Count 316 T/CUMM (130-400); Red Blood Count 3.19 MC/CUMM (3.8-5.5); Red Cell Distribution Width 12.7 % (9.3-17.3); White Blood Count 10.3 T/CUMM (4-12)
[2019-08-31] MEDS: CLINDAMYCIN INJ 900 MG in PREMIX 1 EACH IV SCH ×3 (05:42→21:48)
[2019-08-31 06:17] LABS: % Iron Saturation 53.7 % (18-50); Ferritin 379.8 ng/ml (26-388)
[2019-08-31 06:26] LABS: Folate 12.4 NG/ML (5.4-24.0)
[2019-08-31] MEDS: FERROUS SULFATE 325 MG TABLET PO SCH ×3 (08:44→21:04)
[2019-08-31] MEDS: FLUCONAZOLE 100 MG TABLET PO SCH (08:44)
[2019-08-31] MEDS: INSULIN GLARGINE 100 UNIT/ML SUBCUT SCH ×2 (08:46→21:03)
[2019-08-31] MEDS: INSULIN LISPRO 100 UNIT/ML SUBCUT SCH ×4 (08:46→21:06)
[2019-08-31] MEDS: INSULIN REGULAR 100 UNIT/ML SUBCUT SCH ×4 (08:49→21:07)
[2019-08-31] MEDS: LEVOFLOXACIN INJ 750 MG in PREMIX 1 EACH IV SCH (12:32)
[2019-09-01] MEDS: SODIUM CHLORIDE 0.9% 1,000 ML IV SCH (00:18)
[2019-09-01] MEDS: PENICILLIN G POTASSIUM INJ 4,000,000 UNIT in SODIUM CHLORIDE 0.9% 100 ML IV SCH ×3 (00:22→12:21)
[2019-09-01] MEDS: CLINDAMYCIN INJ 900 MG in PREMIX 1 EACH IV SCH (07:00)
[2019-09-01] MEDS: INSULIN REGULAR 100 UNIT/ML SUBCUT SCH ×2 (07:45→13:03)
[2019-09-01] MEDS: INSULIN LISPRO 100 UNIT/ML SUBCUT SCH ×2 (09:02→13:04)
[2019-09-01] MEDS: FLUCONAZOLE 100 MG TABLET PO SCH (09:02)
[2019-09-01] MEDS: FERROUS SULFATE 325 MG TABLET PO SCH ×2 (09:02→16:02)
[2019-09-01] MEDS: INSULIN GLARGINE 100 UNIT/ML SUBCUT SCH (10:08)
[2019-09-01] MEDS ORDERED: LEVOFLOXACIN 750 MG TABLET PO SCH (11:00)
[2019-09-01] MEDS ORDERED: CLINDAMYCIN 300 MG CAPSULE PO SCH (14:00)
[2019-09-01 16:10] VITALS: BP 126/88
== END 2019-09-01 17:00 | disposition home or self-care (01) | DRG 239 ==
LOC: SUATTDRO 16:44 → N.ICU 16:44 → N.3E 08-29 17:17
PROVIDERS: ADMIT Internal Medicine; ATTEND Internal Medicine

== ENCOUNTER 2019-11-24 17:45 | Inpatient (IN) ==
[2019-11-24] MEDS ORDERED: PANTOPRAZOLE 40 MG VIAL IV STA (18:45)
[2019-11-24] MEDS ORDERED: ONDANSETRON 4 MG/2 ML VIAL IV STA (18:45)
[2019-11-24] MEDS ORDERED: SODIUM CHLORIDE 0.9% 1,000 ML IV STA (18:45)
[2019-11-24 19:34] LABS: Basophils % 0.2 % (0.0-0.8); Hematocrit 30.7 VOL% (42.0-52.0); Hemoglobin 10.3 GM/DL (14.0-18.0); Immature Granulocytes % 0.5 %; Immature Granulocytes Absolute 0.03 #; Lymphocytes # 0.7 10*3/uL (1.4-4.0); Lymphocytes % 12.5 % (21.2-54.2); Mean Corpuscular HGB Conc 33.6 GM/DL (32-36); Mean Corpuscular Volume 85.3 FL (87-102); Mean Platelet Volume 11.6 FL (9.6-12.0); Neutrophils % 75.8 % (38.7-73.9); Platelet Count 150 T/CUMM (130-400); Red Cell Distribution Width 13.5 % (9.3-17.3); White Blood Count 5.6 T/CUMM (4-12)
[2019-11-24 19:53] LABS: Alanine Aminotransferase 28 U/L (16-61); Albumin 2.6 G/DL (3.4-5.0); Alkaline Phosphatase 115 U/L (45-117); Amylase 54 U/L (25-115); Aspartate Amino Transferase 36 U/L (0-37); Bilirubin,Total < 0.39 MG/DL (0.2-1.0); Blood Urea Nitrogen 58 MG/DL (7-18); Calcium 7.9 MG/DL (8.5-10.1); Estimated Glom Filtration Rate 22 ML/MIN; Ferritin 717.2 ng/ml (26-388); Glucose 294 MG/DL (74-106); Osmolality,Calculated 283.1 MOS/KG (273-304); Total Protein 7.4 G/DL (6.4-8.3); Troponin I < 0.015 NG/ML (0.00-0.045)
[2019-11-24] MEDS ORDERED: diphenhydrAMINE CAP 25 MG CAPSULE PO PRN (20:40)
[2019-11-24] MEDS ORDERED: PIPERACILLIN/TAZOBACTAM 3,375 MG in SODIUM CHLORIDE 0.9% 100 ML IV STA (20:40)
[2019-11-24] MEDS ORDERED: GLUCAGON 1 MG VIAL IM PRN (20:40)
[2019-11-24] MEDS ORDERED: PROMETHAZINE 25 MG/1 ML VIAL IM PRN (20:40)
[2019-11-24] MEDS ORDERED: NICOTINE 21 MG/24 HR PATCH TRANSDERM PRN (20:40)
[2019-11-24] MEDS ORDERED: MORPHINE 4 MG/1 ML VIAL IV PRN (20:40)
[2019-11-24] MEDS ORDERED: guaiFENesin/DM ER 600-30 MG TABLET PO PRN (20:40)
[2019-11-24] MEDS ORDERED: DEXTROSE 50% 25 GM/50 ML VIAL IV PRN (20:40)
[2019-11-24] MEDS ORDERED: hydrALAZINE 20 MG/1 ML VIAL IV PRN (20:40)
[2019-11-24] MEDS ORDERED: SODIUM CHLORIDE 0.9% 500 ML IV STA (20:40)
[2019-11-24] MEDS ORDERED: ALUMINUM/MAGNES/SIMETH MAX STR 30 ML UDCUP PO PRN (20:40)
[2019-11-24 21:08] LABS: Apearance,Urine CLOUDY (Clear); Bilirubin,Urine Negative (Negative); Blood, Urine Moderate mg/dL (Negative); Glucose,Urine (UA) 50 mg/dL (Negative); Hyaline Casts,Urine 3 /LPF (0-3); Ketones,Urine Negative (Negative); Mucus,Urine Occasional /LPF (Occasional); Nitrite,Urine Negative (Negative); Protein,Urine >=500 MG/DL; RBC,Urine 2 /HPF (0-4); Squamous Epithelial Cell,Urine Occasional /HPF (0-10); Urine Color Yellow (Yellow); Urine Specific Gravity 1.013 (1.001-1.035); Urine Urobilinogen < 2.0 EU/DL (0.2-1.0)
[2019-11-24] MEDS: SODIUM CHLORIDE 0.9% 1,000 ML IV SCH (21:30)
[2019-11-24] MEDS ORDERED: VANCOMYCIN INJ 1,000 MG in SODIUM CHLORIDE 0.9% 250 ML IV PRN (22:32)
[2019-11-24] MEDS ORDERED: VANCOMYCIN INJ 1,750 MG in SODIUM CHLORIDE 0.9% 500 ML IV ONE (23:30)
[2019-11-25] MEDS: INSULIN REGULAR 100 UNIT/ML SUBCUT SCH ×5 (02:50→23:21)
[2019-11-25 05:47] LABS: Eosinophils % 0.2 % (0.00-10.9); Hematocrit 29.1 VOL% (42.0-52.0); Hemoglobin 9.7 GM/DL (14.0-18.0); Immature Granulocytes % 0.4 %; Immature Granulocytes Absolute 0.02 #; Mean Corpuscular HGB Conc 33.3 GM/DL (32-36); Mean Corpuscular Volume 86.1 FL (87-102); Monocytes % 12.3 % (1.7-12.7); Neutrophils % 67.1 % (38.7-73.9); Platelet Count 148 T/CUMM (130-400); Red Blood Count 3.38 MC/CUMM (3.8-5.5); Red Cell Distribution Width 13.4 % (9.3-17.3); White Blood Count 4.9 T/CUMM (4-12)
[2019-11-25 06:06] LABS: Albumin 2.4 G/DL (3.4-5.0); Bilirubin,Total 0.7 MG/DL (0.2-1.0); Calcium 7.5 MG/DL (8.5-10.1); Osmolality,Calculated 289.8 MOS/KG (273-304); Total Protein 6.8 G/DL (6.4-8.3)
[2019-11-25] MEDS: PIPERACILLIN/TAZOBACTAM 3,375 MG in SODIUM CHLORIDE 0.9% 100 ML IV SCH ×2 (07:05→18:00)
[2019-11-25] MEDS: SODIUM CHLORIDE 0.9% 1,000 ML IV SCH ×2 (07:05→17:31)
[2019-11-25] MEDS: AZITHROMYCIN 250 MG TABLET PO SCH (09:02)
[2019-11-25 11:14] LABS: Calcium 7.4 MG/DL (8.5-10.1)
[2019-11-26 05:22] LABS: Hematocrit 27.2 VOL% (42.0-52.0); Hemoglobin 9.1 GM/DL (14.0-18.0); Immature Granulocytes % 0.6 %; Immature Granulocytes Absolute 0.03 #; Lymphocytes # 0.7 10*3/uL (1.4-4.0); Lymphocytes % 13.1 % (21.2-54.2); Mean Corpuscular HGB Conc 33.5 GM/DL (32-36); Mean Corpuscular Volume 86.1 FL (87-102); Mean Platelet Volume 11.2 FL (9.6-12.0); Monocytes % 13.9 % (1.7-12.7); Neutrophils % 72.4 % (38.7-73.9); Platelet Count 172 T/CUMM (130-400); Red Blood Count 3.16 MC/CUMM (3.8-5.5); Red Cell Distribution Width 13.4 % (9.3-17.3); White Blood Count 5.1 T/CUMM (4-12)
[2019-11-26 05:36] LABS: Calcium 7.5 MG/DL (8.5-10.1); Osmolality,Calculated 278.2 MOS/KG (273-304)
[2019-11-26] MEDS: INSULIN REGULAR 100 UNIT/ML SUBCUT SCH ×4 (06:16→20:42)
[2019-11-26] MEDS: PIPERACILLIN/TAZOBACTAM 3,375 MG in SODIUM CHLORIDE 0.9% 100 ML IV SCH ×2 (06:17→18:03)
[2019-11-26] MEDS: AZITHROMYCIN 250 MG TABLET PO SCH (07:45)
[2019-11-26] MEDS: HEPARIN 5,000 UNIT/1 ML VIAL SUBCUT SCH ×2 (09:36→16:20)
[2019-11-26] MEDS: SODIUM BICARB INJ 50 MEQ in SODIUM CHLORIDE 0.45% 1,000 ML IV SCH (16:19)
[2019-11-26] MEDS: ACETAMINOPHEN 325 MG TABLET PO PRN (16:19)
[2019-11-26] MEDS: SODIUM CHLORIDE 0.9% 1,000 ML IV SCH (17:36)
[2019-11-27] MEDS: HEPARIN 5,000 UNIT/1 ML VIAL SUBCUT SCH ×3 (01:10→16:33)
[2019-11-27 05:05] LABS: Basophils % 0.2 % (0.0-0.8); Hematocrit 27.9 VOL% (42.0-52.0); Hemoglobin 9.2 GM/DL (14.0-18.0); Immature Granulocytes % 1.3 %; Immature Granulocytes Absolute 0.07 #; Lymphocytes # 0.8 10*3/uL (1.4-4.0); Lymphocytes % 14.9 % (21.2-54.2); Mean Corpuscular Volume 86.4 FL (87-102); Mean Platelet Volume 10.2 FL (9.6-12.0); Neutrophils % 67.6 % (38.7-73.9); Platelet Count 196 T/CUMM (130-400); Red Blood Count 3.23 MC/CUMM (3.8-5.5); Red Cell Distribution Width 13.3 % (9.3-17.3); White Blood Count 5.6 T/CUMM (4-12)
[2019-11-27 05:27] LABS: Calcium 7.7 MG/DL (8.5-10.1)
[2019-11-27 05:40] LABS: Band Neutrophils 1 % (0-10); Hypochromasia 1+; Lymphocytes 9 % (20-55); Microcytosis 1+; Ovalocytes Slight; Platelet Estimate Adequate; Segmented Neutrophils 78 % (50-85); Total Cells Counted 100
[2019-11-27] MEDS: PIPERACILLIN/TAZOBACTAM 3,375 MG in SODIUM CHLORIDE 0.9% 100 ML IV SCH ×2 (06:18→18:35)
[2019-11-27] MEDS: SODIUM BICARB INJ 50 MEQ in SODIUM CHLORIDE 0.45% 1,000 ML IV SCH ×3 (06:25→16:37)
[2019-11-27] MEDS: INSULIN REGULAR 100 UNIT/ML SUBCUT SCH ×4 (08:57→21:45)
[2019-11-27] MEDS: ACETAMINOPHEN 325 MG TABLET PO PRN ×3 (08:57→21:45)
[2019-11-27] MEDS: AZITHROMYCIN 250 MG TABLET PO SCH (08:58)
[2019-11-27] MEDS: ONDANSETRON 4 MG/2 ML VIAL IV PRN (21:50)
[2019-11-28] MEDS: HEPARIN 5,000 UNIT/1 ML VIAL SUBCUT SCH (00:54)
[2019-11-28] MEDS: SODIUM BICARB INJ 50 MEQ in SODIUM CHLORIDE 0.45% 1,000 ML IV SCH ×2 (04:36→17:45)
[2019-11-28 05:12] LABS: Basophils % 0.2 % (0.0-0.8); Eosinophils % 0.2 % (0.00-10.9); Hematocrit 25.3 VOL% (42.0-52.0); Hemoglobin 8.6 GM/DL (14.0-18.0); Immature Granulocytes % 1.2 %; Immature Granulocytes Absolute 0.07 #; Lymphocytes # 0.8 10*3/uL (1.4-4.0); Mean Corpuscular Volume 84.9 FL (87-102); Mean Platelet Volume 10.2 FL (9.6-12.0); Monocytes % 11.3 % (1.7-12.7); Neutrophils % 73.1 % (38.7-73.9); Platelet Count 224 T/CUMM (130-400); Red Blood Count 2.98 MC/CUMM (3.8-5.5); Red Cell Distribution Width 13.2 % (9.3-17.3); White Blood Count 5.9 T/CUMM (4-12)
[2019-11-28 05:34] LABS: Calcium 7.5 MG/DL (8.5-10.1); Osmolality,Calculated 282.1 MOS/KG (273-304)
[2019-11-28] MEDS: PIPERACILLIN/TAZOBACTAM 3,375 MG in SODIUM CHLORIDE 0.9% 100 ML IV SCH (06:46)
[2019-11-28] MEDS: AZITHROMYCIN 250 MG TABLET PO SCH (08:26)
[2019-11-28] MEDS: ENOXAPARIN 40 MG/0.4 ML SYRINGE SUBCUT SCH (08:26)
[2019-11-28] MEDS: INSULIN REGULAR 100 UNIT/ML SUBCUT SCH ×4 (08:49→20:35)
[2019-11-28] MEDS ORDERED: PIPERACILLIN/TAZOBACTAM 3,375 MG in SODIUM CHLORIDE 0.9% 100 ML IV SCH (17:00)
[2019-11-28] MEDS: ACETAMINOPHEN 325 MG TABLET PO PRN (20:35)
[2019-11-29] MEDS: SODIUM BICARB INJ 50 MEQ in SODIUM CHLORIDE 0.45% 1,000 ML IV SCH ×4 (01:39→21:35)
[2019-11-29 06:24] LABS: Basophils % 0.2 % (0.0-0.8); Eosinophils % 0.6 % (0.00-10.9); Hematocrit 25.8 VOL% (42.0-52.0); Immature Granulocytes % 1.6 %; Immature Granulocytes Absolute 0.08 #; Lymphocytes # 0.9 10*3/uL (1.4-4.0); Lymphocytes % 17.6 % (21.2-54.2); Mean Corpuscular HGB Conc 34.9 GM/DL (32-36); Mean Platelet Volume 10.1 FL (9.6-12.0); Monocytes % 13.7 % (1.7-12.7); Neutrophils % 66.3 % (38.7-73.9); Platelet Count 252 T/CUMM (130-400); Red Blood Count 3.11 MC/CUMM (3.8-5.5); Red Cell Distribution Width 13.3 % (9.3-17.3); White Blood Count 5.1 T/CUMM (4-12)
[2019-11-29 06:51] LABS: Calcium 7.6 MG/DL (8.5-10.1); Osmolality,Calculated 279.7 MOS/KG (273-304)
[2019-11-29] MEDS: ENOXAPARIN 40 MG/0.4 ML SYRINGE SUBCUT SCH (08:43)
[2019-11-29] MEDS: MULTIVITAMIN (CENTRUM) TABLET PO SCH (08:43)
[2019-11-29] MEDS: INSULIN REGULAR 100 UNIT/ML SUBCUT SCH ×4 (08:43→21:21)
[2019-11-29] MEDS: AZITHROMYCIN 250 MG TABLET PO SCH (08:43)
[2019-11-29] MEDS: ONDANSETRON 4 MG/2 ML VIAL IV PRN (16:08)
[2019-11-30 05:38] LABS: Basophils % 0.2 % (0.0-0.8); Eosinophils # 0.1 10*3/uL (0.0-0.87); Eosinophils % 1.9 % (0.00-10.9); Hematocrit 26.7 VOL% (42.0-52.0); Immature Granulocytes % 2.2 %; Immature Granulocytes Absolute 0.12 #; Lymphocytes # 1.1 10*3/uL (1.4-4.0); Lymphocytes % 20.4 % (21.2-54.2); Mean Corpuscular HGB Conc 33.7 GM/DL (32-36); Mean Corpuscular Volume 84.2 FL (87-102); Mean Platelet Volume 9.9 FL (9.6-12.0); Monocytes % 13.5 % (1.7-12.7); Neutrophils % 61.8 % (38.7-73.9); Platelet Count 306 T/CUMM (130-400); Red Blood Count 3.17 MC/CUMM (3.8-5.5); Red Cell Distribution Width 13.2 % (9.3-17.3); White Blood Count 5.4 T/CUMM (4-12)
[2019-11-30] MEDS: SODIUM BICARB INJ 50 MEQ in SODIUM CHLORIDE 0.45% 1,000 ML IV SCH (05:47)
[2019-11-30 05:55] LABS: Calcium 7.7 MG/DL (8.5-10.1); Osmolality,Calculated 283.5 MOS/KG (273-304)
[2019-11-30 07:14] LABS: Band Neutrophils 2 % (0-10); Eosinophils 2 % (0-10); Lymphocytes 22 % (20-55); Platelet Estimate Normal; Segmented Neutrophils 62 % (50-85); Total Cells Counted 100
[2019-11-30] MEDS: INSULIN REGULAR 100 UNIT/ML SUBCUT SCH ×4 (08:33→20:44)
[2019-11-30] MEDS: MULTIVITAMIN (CENTRUM) TABLET PO SCH (08:34)
[2019-11-30] MEDS: ENOXAPARIN 40 MG/0.4 ML SYRINGE SUBCUT SCH (08:34)
[2019-11-30] MEDS: POTASSIUM CHLORIDE 20 MEQ TABLET PO PRN ×3 (11:07→18:33)
[2019-12-01 05:26] LABS: Basophils % 0.2 % (0.0-0.8); Eosinophils # 0.2 10*3/uL (0.0-0.87); Eosinophils % 2.7 % (0.00-10.9); Hematocrit 26.7 VOL% (42.0-52.0); Immature Granulocytes % 2.4 %; Immature Granulocytes Absolute 0.14 #; Lymphocytes % 16.8 % (21.2-54.2); Mean Corpuscular HGB Conc 33.7 GM/DL (32-36); Mean Corpuscular Volume 83.4 FL (87-102); Mean Platelet Volume 9.6 FL (9.6-12.0); Monocytes % 12.1 % (1.7-12.7); Neutrophils % 65.8 % (38.7-73.9); Platelet Count 318 T/CUMM (130-400); Red Cell Distribution Width 13.2 % (9.3-17.3)
[2019-12-01 06:01] LABS: Calcium 8.1 MG/DL (8.5-10.1); Osmolality,Calculated 280.8 MOS/KG (273-304)
[2019-12-01 06:27] LABS: Hypochromasia 1+
[2019-12-01 06:28] LABS: Microcytosis 1+; Platelet Estimate Normal
[2019-12-01 08:07] VITALS: BP 157/89
[2019-12-01] MEDS: ENOXAPARIN 40 MG/0.4 ML SYRINGE SUBCUT SCH (08:11)
[2019-12-01] MEDS: INSULIN REGULAR 100 UNIT/ML SUBCUT SCH (08:11)
[2019-12-01] MEDS: MULTIVITAMIN (CENTRUM) TABLET PO SCH (08:11)
[2019-12-01] MEDS ORDERED: amLODIPine 5 MG TABLET PO SCH (09:00)
== END 2019-12-01 11:14 | disposition home or self-care (01) | DRG 177 ==
LOC: EDUNIT# → EDBD → N.ED 17:45 → N.EDINP 20:40 → N.CC 11-25 17:32 → N.2E 11-26 10:17
PROVIDERS: ADMIT Internal Medicine; ATTEND Internal Medicine

== ENCOUNTER 2020-08-25 16:37 | Inpatient (IN) ==
[2020-08-25] MEDS ORDERED: ONDANSETRON 4 MG/2 ML VIAL IV PRN (18:45)
[2020-08-25] MEDS ORDERED: GLUCAGON 1 MG VIAL IM PRN ×2 (18:45)
[2020-08-25] MEDS ORDERED: DEXTROSE 50% 25 GM/50 ML VIAL IV PRN ×2 (18:45)
[2020-08-25] MEDS ORDERED: SODIUM CHLORIDE 0.9% 1,000 ML IV PRN ×2 (19:07→21:24)
[2020-08-25 19:34] LABS: Albumin 3.3 G/DL (3.4-5.0); Bilirubin,Total 0.4 MG/DL (0.2-1.0); Calcium 8.1 MG/DL (8.5-10.1); Osmolality,Calculated 309.5 MOS/KG (273-304); Potassium 5.3 MMOL/L (3.5-5.1); Total Protein 7.1 G/DL (6.4-8.2)
[2020-08-25] MEDS ORDERED: LEVOFLOXACIN INJ 500 MG in PREMIX 1 EACH IV ONE (19:51)
[2020-08-25 20:09] LABS: ABG Base Excess -24.4 MMOL/L (-2.5-2.5); ABG HCO3 6.8 MMOL/L (20-26); ABG Oxygen Saturation 92.5 % (95-100); ABG PO2 74.3 MM HG (80-95)
[2020-08-25 20:16] LABS: ABG PCO2 18.8 MM HG (35-48); ABG PH 7.032 (7.35-7.45)
[2020-08-25] MEDS ORDERED: SODIUM BICARBONATE 50 MEQ/50 ML VIAL IV ONE ×3 (20:32→23:26)
[2020-08-25] MEDS: HEPARIN 5,000 UNIT/1 ML VIAL SUBCUT SCH (21:18)
[2020-08-25] MEDS: FERROUS SULFATE 325 MG TABLET PO SCH (21:19)
[2020-08-25] MEDS: INSULIN REGULAR 100 UNIT/ML SUBCUT SCH (21:19)
[2020-08-25 21:53] LABS: Amorphous Crystals,Urine Occasional /HPF (Few); Bacteria,Urine Occasional /HPF (Few); Bilirubin,Urine Negative (Negative); Blood, Urine Small mg/dL (Negative); Glucose,Urine (UA) Negative (Negative); Ketones,Urine Negative (Negative); Nitrite,Urine Negative (Negative); Protein,Urine 30 MG/DL; RBC,Urine 1 /HPF (0-4); Squamous Epithelial Cell,Urine Occasional /HPF (0-10); Urine Appearance Slightly Hazy (Clear); Urine Color Yellow (Yellow); Urine Specific Gravity 1.006 (1.001-1.035); Urine Urobilinogen < 2.0 EU/DL (0.2-1.0)
[2020-08-25 23:02] LABS: ABG Base Excess -21.2 MMOL/L (-2.5-2.5); ABG HCO3 8.5 MMOL/L (20-26); ABG PO2 78.8 MM HG (80-95); ABG TCO2 6.4 MMOL/L (23-27); Allen Test Positive
[2020-08-25 23:04] LABS: ABG PH 7.143 (7.35-7.45)
[2020-08-25] MEDS ORDERED: VANCOMYCIN INJ 2,000 MG in SODIUM CHLORIDE 0.9% 500 ML IV ONE (23:30)
[2020-08-26] MEDS: CEFEPIME 1,000 MG in SODIUM CHLORIDE 0.9% 100 ML IV SCH ×3 (00:30→22:52)
[2020-08-26] MEDS: ALBUTEROL 2.5 MG/3 ML NEB RESP TX SCH ×4 (00:40→19:50)
[2020-08-26] MEDS ORDERED: ETOMIDATE 20 MG/10 ML VIAL IV ONE ×4 (00:49→00:59)
[2020-08-26] MEDS ORDERED: VECURONIUM 10 MG VIAL IV ONE ×2 (00:49→01:01)
[2020-08-26 01:59] LABS: Allen Test Positive; Pt O2 Delivery Device Ventilator
[2020-08-26 02:00] LABS: ABG Base Excess -20.2 MMOL/L (-2.5-2.5); ABG HCO3 9.3 MMOL/L (20-26); ABG Oxygen Saturation 98.8 % (95-100); ABG PCO2 38.3 MM HG (35-48); ABG TCO2 9.7 MMOL/L (23-27)
[2020-08-26 02:01] LABS: ABG PH 7.012 (7.35-7.45)
[2020-08-26] MEDS ORDERED: SODIUM BICARBONATE 50 MEQ/50 ML VIAL IV ONE ×2 (02:13→07:27)
[2020-08-26] MEDS: HEPARIN 5,000 UNIT/1 ML VIAL SUBCUT SCH ×2 (03:25→16:36)
[2020-08-26 04:11] LABS: Allen Test Positive; Pt O2 Delivery Device Ventilator
[2020-08-26 04:13] LABS: ABG Base Excess -16.2 MMOL/L (-2.5-2.5); ABG HCO3 11.9 MMOL/L (20-26); ABG Oxygen Saturation 96.5 % (95-100); ABG PCO2 30.9 MM HG (35-48); ABG TCO2 10.9 MMOL/L (23-27)
[2020-08-26 04:14] LABS: ABG PH 7.169 (7.35-7.45)
[2020-08-26 05:30] LABS: Hematocrit 22.5 VOL% (42.0-52.0); Hemoglobin 6.9 GM/DL (14.0-18.0); Immature Granulocytes % 0.4 %; Immature Granulocytes Absolute 0.02 #; Lymphocytes # 0.4 10*3/uL (1.4-4.0); Lymphocytes % 6.5 % (21.2-54.2); Mean Corpuscular HGB Conc 30.7 GM/DL (32-36); Mean Corpuscular Volume 98.3 FL (87-102); Mean Platelet Volume 11.3 FL (9.6-12.0); Monocytes % 5.8 % (1.7-12.7); NRBC # 0.02 10*3/uL; Neutrophils % 87.3 % (38.7-73.9); Platelet Count 172 T/CUMM (130-400); Red Blood Count 2.29 MC/CUMM (3.8-5.5); Red Cell Distribution Width 15.5 % (9.3-17.3); White Blood Count 5.6 T/CUMM (4-12)
[2020-08-26 05:48] LABS: Albumin 2.3 G/DL (3.4-5.0); Bilirubin,Total 0.9 MG/DL (0.2-1.0); Calcium 7.7 MG/DL (8.5-10.1); Osmolality,Calculated 326.4 MOS/KG (273-304); Potassium 3.7 MMOL/L (3.5-5.1); Total Protein 5.7 G/DL (6.4-8.2)
[2020-08-26 05:56] LABS: Band Neutrophils 23 % (0-10); Lymphocytes 6 % (20-55); Metamyelocytes 2 %; Platelet Estimate Normal; Segmented Neutrophils 63 % (50-85); Total Cells Counted 100
[2020-08-26 05:57] LABS: Giant Platelets Few; Polychromasia 1+
[2020-08-26] MEDS: FERROUS SULFATE 325 MG TABLET PO SCH ×3 (08:03→21:30)
[2020-08-26] MEDS: MULTIVITAMIN (CENTRUM) TABLET PO SCH (08:03)
[2020-08-26] MEDS: PANTOPRAZOLE 40 MG VIAL IV SCH (08:09)
[2020-08-26] MEDS: FUROSEMIDE 40 MG/4 ML VIAL IV SCH ×2 (08:09→16:36)
[2020-08-26] MEDS: INSULIN REGULAR 100 UNIT/ML SUBCUT SCH ×4 (08:10→18:16)
[2020-08-26] MEDS ORDERED: GABAPENTIN 100 MG PO SCH (09:00)
[2020-08-26 10:20] LABS: INR 1.4
[2020-08-26 10:33] LABS: Acetaminophen 2.3 UG/ML (10-30); Salicylate < 2.8 MG/DL (2.8-20)
[2020-08-26 10:36] LABS: Albumin 2.3 G/DL (3.4-5.0); Bilirubin,Total 0.5 MG/DL (0.2-1.0); Calcium 7.5 MG/DL (8.5-10.1); Osmolality,Calculated 330.3 MOS/KG (273-304); Potassium 3.3 MMOL/L (3.5-5.1); Total Protein 5.6 G/DL (6.4-8.2)
[2020-08-26 11:11] LABS: Barbiturates Screen,Urine Negative (Negative); Benzodiazepines Screen,Urine Negative (Negative); Cannabinoid Screen,Urine Negative (Negative); Opiate Screen,Urine Negative (Negative); Phencyclidine Screen,Urine Negative (Negative)
[2020-08-26 12:03] LABS: Hepatitis B Core IgM Quant 0.09 Index; Hepatitis B Surface Ag Quant < 0.10 Index; Hepatitis B Surface Ag Result Non-Reactive (NonReactive); Hepatitis C Virus Ab Quant 0.16 Index; Hepatitis C Virus Ab Result Non-Reactive (NonReactive)
[2020-08-26] MEDS: PHENYLEPHRINE DRIP 40 MG/250 ML PREMIX IV PRN (13:30)
[2020-08-26] MEDS ORDERED: HEPARIN 10,000 UNIT/10 ML VIAL IV PRN (15:59)
[2020-08-26] MEDS ORDERED: LEVOFLOXACIN INJ 250 MG in PREMIX 1 EACH IV SCH (21:00)
[2020-08-26] MEDS: ACETAMINOPHEN 325 MG TABLET PO PRN (21:10)
[2020-08-27] MEDS ORDERED: VANCOMYCIN INJ 1,250 MG in SODIUM CHLORIDE 0.9% 250 ML IV PRN
[2020-08-27] MEDS: ALBUTEROL 2.5 MG/3 ML NEB RESP TX SCH ×4 (00:58→19:27)
[2020-08-27] MEDS: INSULIN REGULAR 100 UNIT/ML SUBCUT SCH ×4 (00:59→17:28)
[2020-08-27 02:24] LABS: Basophils % 0.3 % (0.0-0.8); Eosinophils % 0.1 % (0.00-10.9); Hematocrit 23.5 VOL% (42.0-52.0); Hemoglobin 7.6 GM/DL (14.0-18.0); Immature Granulocytes % 0.7 %; Immature Granulocytes Absolute 0.09 #; Lymphocytes # 1.6 10*3/uL (1.4-4.0); Lymphocytes % 12.8 % (21.2-54.2); Mean Corpuscular HGB Conc 32.3 GM/DL (32-36); Mean Corpuscular Volume 92.5 FL (87-102); Mean Platelet Volume 11.1 FL (9.6-12.0); Monocytes % 8.3 % (1.7-12.7); NRBC # 0.04 10*3/uL; Neutrophils % 77.8 % (38.7-73.9); Platelet Count 173 T/CUMM (130-400); Red Blood Count 2.54 MC/CUMM (3.8-5.5); Red Cell Distribution Width 15.2 % (9.3-17.3); White Blood Count 12.4 T/CUMM (4-12)
[2020-08-27 02:50] LABS: Albumin 2.2 G/DL (3.4-5.0); Bilirubin,Total 1.1 MG/DL (0.2-1.0); Osmolality,Calculated 309.7 MOS/KG (273-304); Potassium 2.9 MMOL/L (3.5-5.1); Total Protein 5.7 G/DL (6.4-8.2)
[2020-08-27] MEDS: HEPARIN 5,000 UNIT/1 ML VIAL SUBCUT SCH ×2 (03:10→16:10)
[2020-08-27 03:23] LABS: ABG Base Excess -3.2 MMOL/L (-2.5-2.5); ABG HCO3 21.7 MMOL/L (20-26); ABG Oxygen Saturation 99.4 % (95-100); ABG PCO2 28.4 MM HG (35-48); ABG PH 7.456 (7.35-7.45); ABG TCO2 18.7 MMOL/L (23-27)
[2020-08-27 03:41] LABS: Eosinophils 1 % (0-10); Lymphocytes 17 % (20-55); Platelet Estimate Adequate; Segmented Neutrophils 80 % (50-85); Total Cells Counted 100
[2020-08-27] MEDS ORDERED: VANCOMYCIN INJ 1,250 MG in SODIUM CHLORIDE 0.9% 250 ML IV ONE (08:00)
[2020-08-27] MEDS: MULTIVITAMIN (CENTRUM) TABLET PO SCH (08:41)
[2020-08-27] MEDS: FUROSEMIDE 40 MG/4 ML VIAL IV SCH ×2 (08:41→16:10)
[2020-08-27] MEDS: FERROUS SULFATE 325 MG TABLET PO SCH ×3 (08:41→21:31)
[2020-08-27] MEDS: PANTOPRAZOLE 40 MG VIAL IV SCH (08:42)
[2020-08-27] MEDS: GABAPENTIN 100 MG PO SCH (08:42)
[2020-08-27] MEDS: CEFEPIME 1,000 MG in SODIUM CHLORIDE 0.9% 100 ML IV SCH ×2 (12:45→23:28)
[2020-08-27] MEDS ORDERED: ceFAZolin 2,000 MG in SYRINGE 1 EACH IV ONE (17:00)
[2020-08-27] MEDS ORDERED: METHYL SALICYLATE 60 ML BOTTLE TOP PRN (17:46)
[2020-08-27] MEDS: ACETAMINOPHEN 325 MG TABLET PO PRN (21:31)
[2020-08-28] MEDS: INSULIN REGULAR 100 UNIT/ML SUBCUT SCH ×4 (00:23→18:04)
[2020-08-28] MEDS: ALBUTEROL 2.5 MG/3 ML NEB RESP TX SCH ×4 (00:33→19:17)
[2020-08-28] MEDS: HEPARIN 5,000 UNIT/1 ML VIAL SUBCUT SCH ×2 (03:40→16:01)
[2020-08-28 04:18] LABS: ABG HCO3 26.2 MMOL/L (20-26); ABG Oxygen Saturation 99.3 % (95-100); ABG PCO2 39.2 MM HG (35-48); ABG PH 7.434 (7.35-7.45); ABG TCO2 23.8 MMOL/L (23-27); Allen Test Positive; Pt O2 Delivery Device Ventilator
[2020-08-28 05:26] LABS: Basophils % 0.1 % (0.0-0.8); Eosinophils # 0.6 10*3/uL (0.0-0.87); Eosinophils % 4.1 % (0.00-10.9); Hematocrit 25.1 VOL% (42.0-52.0); Hemoglobin 8.2 GM/DL (14.0-18.0); Immature Granulocytes Absolute 0.15 #; Lymphocytes # 0.7 10*3/uL (1.4-4.0); Lymphocytes % 4.8 % (21.2-54.2); Mean Corpuscular HGB Conc 32.7 GM/DL (32-36); Mean Platelet Volume 10.6 FL (9.6-12.0); Monocytes % 5.5 % (1.7-12.7); Neutrophils % 84.5 % (38.7-73.9); Platelet Count 184 T/CUMM (130-400); Red Cell Distribution Width 15.5 % (9.3-17.3); White Blood Count 14.3 T/CUMM (4-12)
[2020-08-28 05:51] LABS: Albumin 2.4 G/DL (3.4-5.0); Calcium 8.1 MG/DL (8.5-10.1); Potassium 3.2 MMOL/L (3.5-5.1); Total Protein 6.5 G/DL (6.4-8.2)
[2020-08-28 06:04] LABS: Anisocytosis 1+; Band Neutrophils 19 % (0-10); Eosinophils 8 % (0-10); Lymphocytes 6 % (20-55); Macrocytosis Slight; Nucleated Red Blood Cells 1 (0-5); Platelet Estimate Normal; Segmented Neutrophils 62 % (50-85); Total Cells Counted 100
[2020-08-28] MEDS ORDERED: VANCOMYCIN INJ 500 MG in SODIUM CHLORIDE 0.9% 250 ML IV PRN (08:49)
[2020-08-28] MEDS: FERROUS SULFATE 325 MG TABLET PO SCH ×3 (08:49→20:12)
[2020-08-28] MEDS: MULTIVITAMIN (CENTRUM) TABLET PO SCH (08:49)
[2020-08-28] MEDS: PANTOPRAZOLE 40 MG VIAL IV SCH (08:49)
[2020-08-28] MEDS: GABAPENTIN 100 MG PO SCH (08:49)
[2020-08-28] MEDS: FUROSEMIDE 40 MG/4 ML VIAL IV SCH ×2 (08:49→16:01)
[2020-08-28] MEDS ORDERED: ROPIVACAINE 0.5% 30 ML VIAL ONE (09:44)
[2020-08-28] MEDS ORDERED: ROCURONIUM 50 MG/5 ML VIAL IV ONE (09:45)
[2020-08-28] MEDS ORDERED: fentaNYL 100 MCG/2 ML VIAL ONE (09:46)
[2020-08-28] MEDS: CEFEPIME 1,000 MG in SODIUM CHLORIDE 0.9% 100 ML IV SCH (13:19)
[2020-08-29] MEDS: ALBUTEROL 2.5 MG/3 ML NEB RESP TX SCH ×4 (00:04→19:24)
[2020-08-29] MEDS: CEFEPIME 1,000 MG in SODIUM CHLORIDE 0.9% 100 ML IV SCH ×2 (00:05→11:57)
[2020-08-29] MEDS: INSULIN REGULAR 100 UNIT/ML SUBCUT SCH ×4 (00:44→17:50)
[2020-08-29] MEDS ORDERED: SODIUM CHLORIDE 0.9% 250 ML IV ONE (02:42)
[2020-08-29] MEDS ORDERED: LEVOFLOXACIN INJ 100 ML IV ONE (03:00)
[2020-08-29] MEDS: HEPARIN 5,000 UNIT/1 ML VIAL SUBCUT SCH ×2 (03:24→15:11)
[2020-08-29 03:43] LABS: Basophils % 0.2 % (0.0-0.8); Eosinophils # 0.4 10*3/uL (0.0-0.87); Eosinophils % 2.6 % (0.00-10.9); Hematocrit 26.2 VOL% (42.0-52.0); Hemoglobin 8.3 GM/DL (14.0-18.0); Immature Granulocytes % 0.8 %; Immature Granulocytes Absolute 0.13 #; Lymphocytes # 0.6 10*3/uL (1.4-4.0); Lymphocytes % 3.3 % (21.2-54.2); Mean Corpuscular HGB Conc 31.7 GM/DL (32-36); Mean Platelet Volume 10.8 FL (9.6-12.0); Monocytes % 5.3 % (1.7-12.7); NRBC # 0.06 10*3/uL; Neutrophils % 87.8 % (38.7-73.9); Platelet Count 180 T/CUMM (130-400); Red Blood Count 2.73 MC/CUMM (3.8-5.5); Red Cell Distribution Width 15.6 % (9.3-17.3)
[2020-08-29 04:01] LABS: Albumin 2.2 G/DL (3.4-5.0); Bilirubin,Total 1.8 MG/DL (0.2-1.0); Calcium 8.1 MG/DL (8.5-10.1); Osmolality,Calculated 295.4 MOS/KG (273-304); Total Protein 6.7 G/DL (6.4-8.2)
[2020-08-29 04:16] LABS: Eosinophils 5 % (0-10); Lymphocytes 10 % (20-55); Segmented Neutrophils 84 % (50-85); Total Cells Counted 100
[2020-08-29 04:17] LABS: Microcytosis 1+
[2020-08-29 04:18] LABS: Platelet Estimate Adequate
[2020-08-29 05:28] LABS: ABG Base Excess -2.2 MMOL/L (-2.5-2.5); ABG HCO3 22.5 MMOL/L (20-26); ABG Oxygen Saturation 95.5 % (95-100); ABG PCO2 35.2 MM HG (35-48); ABG PH 7.404 (7.35-7.45); ABG PO2 76.5 MM HG (80-95); ABG TCO2 20.4 MMOL/L (23-27)
[2020-08-29] MEDS: PHENYLEPHRINE DRIP 40 MG/250 ML PREMIX IV PRN (05:45)
[2020-08-29] MEDS: GABAPENTIN 100 MG PO SCH (08:12)
[2020-08-29] MEDS: MULTIVITAMIN (CENTRUM) TABLET PO SCH (08:59)
[2020-08-29] MEDS: ACETAMINOPHEN 325 MG TABLET PO PRN (08:59)
[2020-08-29] MEDS: FERROUS SULFATE 325 MG TABLET PO SCH ×3 (09:01→20:56)
[2020-08-29] MEDS: PANTOPRAZOLE 40 MG VIAL IV SCH (09:11)
[2020-08-29] MEDS: FUROSEMIDE 40 MG/4 ML VIAL IV SCH ×3 (10:03→15:24)
[2020-08-29] MEDS ORDERED: SODIUM CHLORIDE 0.9% 500 ML IV ONE (10:07)
[2020-08-29] MEDS: POTASSIUM CHLORIDE 20 MEQ/15 ML UDCUP PO SCH ×3 (10:23→20:56)
[2020-08-30] MEDS: INSULIN REGULAR 100 UNIT/ML SUBCUT SCH ×5 (00:35→23:52)
[2020-08-30] MEDS: CEFEPIME 1,000 MG in SODIUM CHLORIDE 0.9% 100 ML IV SCH ×3 (00:35→23:52)
[2020-08-30] MEDS: ALBUTEROL 2.5 MG/3 ML NEB RESP TX SCH ×4 (01:05→18:10)
[2020-08-30] MEDS: PHENYLEPHRINE DRIP 40 MG/250 ML PREMIX IV PRN (02:25)
[2020-08-30] MEDS: HEPARIN 5,000 UNIT/1 ML VIAL SUBCUT SCH ×2 (04:05→15:49)
[2020-08-30 04:41] LABS: Basophils % 0.2 % (0.0-0.8); Eosinophils # 0.7 10*3/uL (0.0-0.87); Eosinophils % 3.1 % (0.00-10.9); Hematocrit 26.9 VOL% (42.0-52.0); Hemoglobin 8.5 GM/DL (14.0-18.0); Immature Granulocytes % 2.1 %; Lymphocytes # 0.8 10*3/uL (1.4-4.0); Lymphocytes % 3.5 % (21.2-54.2); Mean Corpuscular HGB Conc 31.6 GM/DL (32-36); Mean Corpuscular Volume 97.8 FL (87-102); Mean Platelet Volume 10.9 FL (9.6-12.0); Monocytes % 6.3 % (1.7-12.7); NRBC # 0.04 10*3/uL; Neutrophils % 84.8 % (38.7-73.9); Platelet Count 193 T/CUMM (130-400); Red Blood Count 2.75 MC/CUMM (3.8-5.5); Red Cell Distribution Width 15.9 % (9.3-17.3); White Blood Count 23.5 T/CUMM (4-12)
[2020-08-30 04:56] LABS: ABG Base Excess -6.4 MMOL/L (-2.5-2.5); ABG HCO3 19.2 MMOL/L (20-26); ABG Oxygen Saturation 98.7 % (95-100); ABG PCO2 38.5 MM HG (35-48); ABG PH 7.311 (7.35-7.45); ABG TCO2 17.8 MMOL/L (23-27); Allen Test Positive; Pt O2 Delivery Device Ventilator
[2020-08-30 05:04] LABS: Eosinophils 4 % (0-10); Hypochromasia 1+; Lymphocytes 4 % (20-55); Microcytosis 1+; Platelet Estimate Adequate; Segmented Neutrophils 87 % (50-85); Total Cells Counted 100
[2020-08-30 05:06] LABS: Albumin 2.1 G/DL (3.4-5.0); Bilirubin,Total 2.3 MG/DL (0.2-1.0); Calcium 8.7 MG/DL (8.5-10.1); Osmolality,Calculated 304.1 MOS/KG (273-304); Potassium 3.6 MMOL/L (3.5-5.1); Total Protein 6.9 G/DL (6.4-8.2)
[2020-08-30] MEDS: FERROUS SULFATE 325 MG TABLET PO SCH ×3 (08:14→20:21)
[2020-08-30] MEDS: PANTOPRAZOLE 40 MG VIAL IV SCH (08:14)
[2020-08-30] MEDS: MULTIVITAMIN (CENTRUM) TABLET PO SCH (08:14)
[2020-08-30] MEDS: POTASSIUM CHLORIDE 20 MEQ/15 ML UDCUP PO SCH ×3 (08:15→20:21)
[2020-08-30] MEDS: FUROSEMIDE 40 MG/4 ML VIAL IV SCH ×2 (08:15→15:49)
[2020-08-30] MEDS ORDERED: VANCOMYCIN INJ 750 MG in SODIUM CHLORIDE 0.9% 250 ML IV PRN (08:43)
[2020-08-30] MEDS: GABAPENTIN 100 MG PO SCH (09:24)
[2020-08-30] MEDS ORDERED: VANCOMYCIN INJ 750 MG in SODIUM CHLORIDE 0.9% 250 ML IV ONE (10:00)
[2020-08-31] MEDS: ALBUTEROL 2.5 MG/3 ML NEB RESP TX SCH ×4 (00:20→20:12)
[2020-08-31] MEDS: PHENYLEPHRINE DRIP 40 MG/250 ML PREMIX IV PRN (02:42)
[2020-08-31] MEDS ORDERED: LEVOFLOXACIN IV SCH (03:00)
[2020-08-31 03:27] LABS: ABG Base Excess -11.1 MMOL/L (-2.5-2.5); ABG HCO3 15.6 MMOL/L (20-26); ABG Oxygen Saturation 98.2 % (95-100); ABG PCO2 35.2 MM HG (35-48); ABG PH 7.249 (7.35-7.45); ABG TCO2 14.4 MMOL/L (23-27)
[2020-08-31] MEDS: HEPARIN 5,000 UNIT/1 ML VIAL SUBCUT SCH ×2 (04:05→15:19)
[2020-08-31 04:46] LABS: Basophils # 0.1 10*3/uL (0.0-0.2); Basophils % 0.2 % (0.0-0.8); Eosinophils # 1.1 10*3/uL (0.0-0.87); Eosinophils % 3.7 % (0.00-10.9); Hematocrit 28.7 VOL% (42.0-52.0); Hemoglobin 8.7 GM/DL (14.0-18.0); Immature Granulocytes % 5.5 %; Immature Granulocytes Absolute 1.62 #; Lymphocytes # 0.9 10*3/uL (1.4-4.0); Lymphocytes % 3.2 % (21.2-54.2); Mean Corpuscular HGB Conc 30.3 GM/DL (32-36); Mean Corpuscular Volume 99.7 FL (87-102); Monocytes % 6.3 % (1.7-12.7); NRBC # 0.07 10*3/uL; Neutrophils % 81.1 % (38.7-73.9); Platelet Count 221 T/CUMM (130-400); Red Blood Count 2.88 MC/CUMM (3.8-5.5); Red Cell Distribution Width 15.9 % (9.3-17.3); White Blood Count 29.7 T/CUMM (4-12)
[2020-08-31 04:57] LABS: Calcium 8.8 MG/DL (8.5-10.1); Osmolality,Calculated 304.4 MOS/KG (273-304)
[2020-08-31 05:06] LABS: Band Neutrophils 2 % (0-10); Eosinophils 4 % (0-10); Hypochromasia 1+; Lymphocytes 4 % (20-55); Microcytosis 1+; Platelet Estimate Adequate; Segmented Neutrophils 83 % (50-85); Total Cells Counted 100
[2020-08-31] MEDS: INSULIN REGULAR 100 UNIT/ML SUBCUT SCH ×3 (05:54→18:17)
[2020-08-31] MEDS: PANTOPRAZOLE 40 MG VIAL IV SCH (08:02)
[2020-08-31] MEDS: MULTIVITAMIN (CENTRUM) TABLET PO SCH (08:02)
[2020-08-31] MEDS: FERROUS SULFATE 325 MG TABLET PO SCH ×3 (08:02→20:44)
[2020-08-31] MEDS: FUROSEMIDE 40 MG/4 ML VIAL IV SCH (08:03)
[2020-08-31] MEDS: GABAPENTIN 100 MG PO SCH (09:18)
[2020-08-31] MEDS: POTASSIUM CHLORIDE 20 MEQ/15 ML UDCUP PO SCH (09:19)
[2020-08-31] MEDS: CEFEPIME 1,000 MG in SODIUM CHLORIDE 0.9% 100 ML IV SCH (12:09)
[2020-08-31] MEDS ORDERED: VANCOMYCIN INJ 500 MG in SODIUM CHLORIDE 0.9% 100 ML IV ONE (13:00)
[2020-08-31 13:18] VITALS: BP 125/75
[2020-09-01] MEDS: CEFEPIME 1,000 MG in SODIUM CHLORIDE 0.9% 100 ML IV SCH (00:05)
[2020-09-01] MEDS: INSULIN REGULAR 100 UNIT/ML SUBCUT SCH ×2 (00:35→05:38)
[2020-09-01] MEDS: PHENYLEPHRINE DRIP 40 MG/250 ML PREMIX IV PRN (02:00)
[2020-09-01] MEDS: ALBUTEROL 2.5 MG/3 ML NEB RESP TX SCH ×2 (02:04→07:05)
[2020-09-01] MEDS: HEPARIN 5,000 UNIT/1 ML VIAL SUBCUT SCH (04:12)
[2020-09-01 04:19] LABS: ABG Base Excess -5.8 MMOL/L (-2.5-2.5); ABG HCO3 19.7 MMOL/L (20-26); ABG Oxygen Saturation 97.9 % (95-100); ABG PCO2 42.2 MM HG (35-48); ABG PH 7.294 (7.35-7.45)
[2020-09-01 04:33] LABS: Basophils % 0.2 % (0.0-0.8); Eosinophils % 5.4 % (0.00-10.9); Hematocrit 28.6 VOL% (42.0-52.0); Hemoglobin 8.9 GM/DL (14.0-18.0); Immature Granulocytes % 7.5 %; Lymphocytes # 1.1 10*3/uL (1.4-4.0); Lymphocytes % 5.6 % (21.2-54.2); Mean Corpuscular HGB Conc 31.1 GM/DL (32-36); Mean Corpuscular Volume 96.9 FL (87-102); Mean Platelet Volume 10.7 FL (9.6-12.0); Monocytes % 8.6 % (1.7-12.7); NRBC # 0.04 10*3/uL; Neutrophils % 72.7 % (38.7-73.9); Platelet Count 209 T/CUMM (130-400); Red Blood Count 2.95 MC/CUMM (3.8-5.5); Red Cell Distribution Width 15.5 % (9.3-17.3); White Blood Count 18.7 T/CUMM (4-12)
[2020-09-01 04:51] LABS: Band Neutrophils 3 % (0-10); Eosinophils 4 % (0-10); Lymphocytes 7 % (20-55); Platelet Estimate Adequate; Segmented Neutrophils 74 % (50-85); Total Cells Counted 100
[2020-09-01 04:52] LABS: Hypochromasia 1+; Microcytosis 1+
[2020-09-01 04:53] LABS: Calcium 8.5 MG/DL (8.5-10.1); Osmolality,Calculated 291.7 MOS/KG (273-304); Potassium 4.3 MMOL/L (3.5-5.1)
[2020-09-01] MEDS: FERROUS SULFATE 325 MG TABLET PO SCH (08:17)
[2020-09-01] MEDS: PANTOPRAZOLE 40 MG VIAL IV SCH (08:17)
[2020-09-01] MEDS: MULTIVITAMIN (CENTRUM) TABLET PO SCH (08:17)
[2020-09-01] MEDS ORDERED: ERGOCALCIFEROL 50,000 UNIT CAPSULE PO SCH (09:00)
[2020-09-01] MEDS ORDERED: GABAPENTIN 100 MG CAPSULE PO SCH (09:00)
== END 2020-09-01 11:19 | DRG 987 ==
LOC: N.5E → SUATTDRO 18:46 → N.ICU 20:42 → N.CC 08-28 14:55
PROVIDERS: ADMIT Internal Medicine; ATTEND Internal Medicine

== ENCOUNTER 2020-09-25 16:32 | Inpatient (IN) ==
[2020-09-25] MEDS ORDERED: ALBUTEROL/IPRATROPIUM 3 ML NEB RESP TX PRN (18:19)
[2020-09-25] MEDS ORDERED: ONDANSETRON 4 MG/2 ML VIAL IV PRN (18:19)
[2020-09-25] MEDS ORDERED: FUROSEMIDE 40 MG/4 ML VIAL IV ONE (18:19)
[2020-09-25] MEDS ORDERED: GLUCAGON 1 MG VIAL IM PRN (18:19)
[2020-09-25] MEDS ORDERED: DEXTROSE 50% 25 GM/50 ML VIAL IV PRN (18:19)
[2020-09-25] MEDS ORDERED: hydrALAZINE 20 MG/1 ML VIAL IV PRN (18:19)
[2020-09-25] MEDS ORDERED: SODIUM BICARBONATE 50 MEQ/50 ML VIAL IV ONE (18:31)
[2020-09-25] MEDS: ENOXAPARIN 30 MG/0.3 ML SYRINGE SUBCUT SCH (18:39)
[2020-09-25] MEDS: PANTOPRAZOLE 40 MG VIAL IV SCH (18:39)
[2020-09-25 18:56] LABS: ABG Base Excess -15.6 MMOL/L (-2.5-2.5); ABG HCO3 12.5 MMOL/L (20-26); ABG Oxygen Saturation 90.8 % (95-100); ABG PCO2 24.7 MM HG (35-48); ABG PH 7.242 (7.35-7.45); ABG PO2 59.7 MM HG (80-95)
[2020-09-25] MEDS ORDERED: VANCOMYCIN INJ 2,000 MG in SODIUM CHLORIDE 0.9% 500 ML IV ONE (19:00)
[2020-09-25 19:03] VITALS: BP 124/74
[2020-09-25 19:06] LABS: Basophils # 0.1 10*3/uL (0.0-0.2); Basophils % 0.2 % (0.0-0.8); Eosinophils % 0.1 % (0.00-10.9); Hematocrit 25.2 VOL% (42.0-52.0); Hemoglobin 8.2 GM/DL (14.0-18.0); Immature Granulocytes % 1.8 %; Immature Granulocytes Absolute 0.61 #; Lymphocytes # 0.4 10*3/uL (1.4-4.0); Lymphocytes % 1.2 % (21.2-54.2); Mean Corpuscular HGB Conc 32.5 GM/DL (32-36); Mean Corpuscular Volume 88.7 FL (87-102); Mean Platelet Volume 10.2 FL (9.6-12.0); Monocytes % 1.7 % (1.7-12.7); Platelet Count 314 T/CUMM (130-400); Red Blood Count 2.84 MC/CUMM (3.8-5.5); Red Cell Distribution Width 15.5 % (9.3-17.3)
[2020-09-25 19:16] LABS: INR 1.4; PT Patient Result 15.1 SECS (10.5-12.0)
[2020-09-25 19:17] LABS: Albumin 1.4 G/DL (3.4-5.0); Bilirubin,Total 0.5 MG/DL (0.2-1.0); Calcium 7.8 MG/DL (8.5-10.1); Osmolality,Calculated 280.4 MOS/KG (273-304); Potassium 5.8 MMOL/L (3.5-5.1); Total Protein 6.4 G/DL (6.4-8.2)
[2020-09-25 19:24] LABS: Bilirubin,Urine Negative (Negative); Blood, Urine Small mg/dL (Negative); Glucose,Urine (UA) 50 mg/dL (Negative); Ketones,Urine Negative (Negative); Mucus,Urine Occasional /LPF (Occasional); Nitrite,Urine Negative (Negative); Protein,Urine 100 MG/DL; RBC,Urine 47 /HPF (0-4); Squamous Epithelial Cell,Urine Occasional /HPF (0-10); Urine Appearance CLOUDY (Clear); Urine Color Yellow (Yellow); Urine Specific Gravity 1.015 (1.001-1.035); Urine Urobilinogen < 2.0 EU/DL (0.2-1.0)
[2020-09-25 19:47] LABS: Anisocytosis 1+; Band Neutrophils 4 % (0-10); Metamyelocytes 1 %; Microcytosis Slight; Segmented Neutrophils 95 % (50-85); Total Cells Counted 100
[2020-09-25 19:48] LABS: Platelet Estimate Normal; Polychromasia Slight
[2020-09-25] MEDS ORDERED: CEFEPIME 1,000 MG in SODIUM CHLORIDE 0.9% 100 ML IV ONE (20:00)
[2020-09-25] MEDS: INSULIN LISPRO 100 UNIT/ML SUBCUT SCH (20:15)
[2020-09-25] MEDS: SODIUM BICARBONATE 650 MG TABLET PO SCH (20:16)
[2020-09-25] MEDS: CEFEPIME 1,000 MG in SODIUM CHLORIDE 0.9% 100 ML IV SCH (20:16)
[2020-09-26] MEDS: INSULIN LISPRO 100 UNIT/ML SUBCUT SCH ×4 (08:16→20:26)
[2020-09-26] MEDS: SODIUM BICARBONATE 650 MG TABLET PO SCH ×3 (09:16→20:02)
[2020-09-26 09:46] LABS: Basophils # 0.1 10*3/uL (0.0-0.2); Basophils % 0.2 % (0.0-0.8); Hematocrit 27.3 VOL% (42.0-52.0); Hemoglobin 8.6 GM/DL (14.0-18.0); Immature Granulocytes % 1.6 %; Lymphocytes # 1.2 10*3/uL (1.4-4.0); Lymphocytes % 2.6 % (21.2-54.2); Mean Corpuscular HGB Conc 31.5 GM/DL (32-36); Mean Platelet Volume 10.2 FL (9.6-12.0); Monocytes % 2.6 % (1.7-12.7); NRBC # 0.02 10*3/uL; Platelet Count 346 T/CUMM (130-400); Red Cell Distribution Width 15.7 % (9.3-17.3)
[2020-09-26 09:50] LABS: White Blood Count 44.2 T/CUMM (4-12)
[2020-09-26 09:51] LABS: ABG Base Excess -13.6 MMOL/L (-2.5-2.5); ABG HCO3 13.8 MMOL/L (20-26); ABG Oxygen Saturation 96.3 % (95-100); ABG PCO2 33.9 MM HG (35-48); ABG PO2 88.2 MM HG (80-95); ABG TCO2 12.8 MMOL/L (23-27)
[2020-09-26] MEDS: CEFEPIME 1,000 MG in SODIUM CHLORIDE 0.9% 100 ML IV SCH (09:52)
[2020-09-26 09:55] LABS: Albumin 1.3 G/DL (3.4-5.0); Bilirubin,Total 0.5 MG/DL (0.2-1.0); Calcium 8.1 MG/DL (8.5-10.1); Osmolality,Calculated 287.8 MOS/KG (273-304); Potassium 5.4 MMOL/L (3.5-5.1); Total Protein 6.3 G/DL (6.4-8.2)
[2020-09-26 09:55] LABS: ABG PH 7.206 (7.35-7.45)
[2020-09-26 10:16] LABS: Anisocytosis Slight; Band Neutrophils 34 % (0-10); Lymphocytes 1 % (20-55); Platelet Estimate Normal; Segmented Neutrophils 64 % (50-85); Total Cells Counted 100
[2020-09-26 10:17] LABS: Giant Platelets Few; Macrocytosis 1+; Spherocytes Few
[2020-09-26] MEDS ORDERED: SODIUM BICARBONATE 50 MEQ/50 ML VIAL IV ONE ×2 (10:23→10:33)
[2020-09-26] MEDS ORDERED: MAGNESIUM SULF RIDER 2 GM in PREMIX 1 EACH IV ONE (10:27)
[2020-09-26] MEDS ORDERED: FLUCONAZOLE INJ 200 MG/100 ML PREMIX IV SCH (10:30)
[2020-09-26] MEDS ORDERED: metOLazone 5 MG TABLET PO SCH (10:30)
[2020-09-26] MEDS: FUROSEMIDE INJ 200 MG in SODIUM CHLORIDE 0.9% 50 ML IV SCH ×2 (15:34→20:03)
[2020-09-26] MEDS: ENOXAPARIN 30 MG/0.3 ML SYRINGE SUBCUT SCH (17:47)
[2020-09-26] MEDS: PANTOPRAZOLE 40 MG VIAL IV SCH (17:47)
[2020-09-27] MEDS ORDERED: ROCURONIUM 100 MG/10 ML VIAL IV ONE ×2 (04:04→07:18)
[2020-09-27] MEDS ORDERED: ETOMIDATE 20 MG/10 ML VIAL IV ONE ×2 (04:04→04:06)
[2020-09-27] MEDS ORDERED: EPINEPHrine 1 MG/10 ML SYRINGE ONE ×4 (04:06→07:18)
[2020-09-27] MEDS ORDERED: CALCIUM CHLORIDE 1,000 MG/10 ML SYRINGE IV ONE ×4 (04:53→07:18)
[2020-09-27] MEDS ORDERED: SODIUM BICARBONATE 50 MEQ/50 ML SYRINGE IV ONE ×6 (04:53→07:18)
[2020-09-27] MEDS ORDERED: ATROPINE 1 MG/10 ML SYRINGE ONE (04:53)
[2020-09-27 04:54] LABS: ABG Base Excess -17.4 MMOL/L (-2.5-2.5); ABG HCO3 13.5 MMOL/L (20-26); ABG Oxygen Saturation 54.4 % (95-100); ABG PCO2 62.2 MM HG (35-48); ABG TCO2 15.4 MMOL/L (23-27); Allen Test Positive; Pt O2 Delivery Device Ventilator
[2020-09-27 05:01] LABS: ABG PO2 38.7 MM HG (80-95)
[2020-09-27 05:02] LABS: ABG PH 6.954 (7.35-7.45)
[2020-09-27 05:05] LABS: Basophils # 0.1 10*3/uL (0.0-0.2); Basophils % 0.1 % (0.0-0.8); Hematocrit 23.1 VOL% (42.0-52.0); Hemoglobin 7.1 GM/DL (14.0-18.0); Immature Granulocytes % 4.1 %; Immature Granulocytes Absolute 1.38 #; Lymphocytes # 4.6 10*3/uL (1.4-4.0); Lymphocytes % 13.5 % (21.2-54.2); Mean Corpuscular HGB Conc 30.7 GM/DL (32-36); Mean Corpuscular Volume 94.3 FL (87-102); Mean Platelet Volume 11.1 FL (9.6-12.0); Monocytes % 3.7 % (1.7-12.7); NRBC # 0.12 10*3/uL; Neutrophils % 78.6 % (38.7-73.9); Platelet Count 282 T/CUMM (130-400); Red Blood Count 2.45 MC/CUMM (3.8-5.5); Red Cell Distribution Width 15.9 % (9.3-17.3); White Blood Count 33.9 T/CUMM (4-12)
[2020-09-27 05:19] LABS: ABG Base Excess -9.6 MMOL/L (-2.5-2.5); ABG HCO3 16.6 MMOL/L (20-26); ABG Oxygen Saturation 98.4 % (95-100)
[2020-09-27 05:21] LABS: ABG PCO2 75.3 MM HG (35-48); ABG PH 7.056 (7.35-7.45)
[2020-09-27 05:30] LABS: Band Neutrophils 3 % (0-10); Hypochromasia 1+; Lymphocytes 16 % (20-55); Microcytosis 1+; Platelet Estimate Adequate; Segmented Neutrophils 79 % (50-85); Total Cells Counted 100
[2020-09-27 05:34] LABS: Alanine Aminotransferase 11 U/L (16-61); Albumin 1.4 G/DL (3.4-5.0); Alkaline Phosphatase 97 U/L (45-117); Aspartate Amino Transferase 29 U/L (0-37); Bilirubin,Total < 0.39 MG/DL (0.2-1.0); Blood Urea Nitrogen 56 MG/DL (7-18); Calcium 10.1 MG/DL (8.5-10.1); Carbon Dioxide 18 MMOL/L (21-32); Estimated Glom Filtration Rate 16 ML/MIN; Glucose 280 MG/DL (74-106); Osmolality,Calculated 308.1 MOS/KG (273-304); Potassium 4.9 MMOL/L (3.5-5.1); Sodium 142 MMOL/L (136-145); Total Protein 5.8 G/DL (6.4-8.2)
[2020-09-27] MEDS ORDERED: EPINEPHrine 30 MG/30 ML VIAL IV ONE (05:46)
[2020-09-27] MEDS ORDERED: SODIUM BICARBONATE 50 MEQ/50 ML VIAL IV ONE (06:00)
[2020-09-27] MEDS ORDERED: SODIUM BICARB INJ 150 MEQ in STERILE WATER INJ 1,000 ML IV SCH (08:00)
[2020-09-27] MEDS ORDERED: VANCOMYCIN INJ 1,250 MG in SODIUM CHLORIDE 0.9% 250 ML IV PRN (12:00)
== END 2020-09-27 07:52 | disposition expired | DRG 871 ==
LOC: SUATTDRO 18:12 → N.CC 18:12
PROVIDERS: ADMIT Internal Medicine; ATTEND Internal Medicine